=== PATIENT | male | born 1950 | race Hispanic/Latino ===

== ENCOUNTER 2017-12-11 17:25 | Emergency (ER) | payer OTHER, MEDICARE ==
[~2017-12-11 17:25] MED LIST: ACET-66 PO; APIX5TAB PO; ASPI-1005 PO; ATOR20TA65 PO; FENO145T37 PO; HYDR12.54 PO; LOSA100T29 PO; METO100T14 PO; PHEN100C23 PO; POTA10CA44 PO; SUCR1TAB2 PO; TAMS0.4C32 PO
[2017-12-11] MEDS ORDERED: LEVETIRACETAM 500 MG TABLET PO ONE (17:46)
== END 2017-12-11 18:53 | disposition home or self-care (01) ==
LOC: EDH 17:25
DX: S40.022A Contusion of left upper arm, initial encounter (principal); R56.9 Unspecified convulsions; E78.5 Hyperlipidemia, unspecified; I10 Essential (primary) hypertension; Z86.73 Personal history of transient ischemic attack (TIA), and cerebral infarction without residual deficits; X58.XXXA Exposure to other specified factors, initial encounter; Y93.89 Activity, other specified; Y92.89 Other specified places as the place of occurrence of the external cause; Y99.8 Other external cause status

== ENCOUNTER 2019-08-01 11:11 | Emergency (ER) | payer OTHER, MEDICARE ==
[~2019-08-01 11:11] MED LIST changes: -LOSA100T29 PO; +LOSA100T58 PO
[2019-08-01 11:27] LABS: BASOPHILS % (AUTO) 0.5 % (0.0-5.0); EOSINOPHILS % (AUTO) 3.8 % (0.0-8.0); HEMATOCRIT 40.6 % (42-54); LYMPHOCYTES % (AUTO) 22.6 % (21.0-51.0); MEAN CORPUSCULAR HEMOGLOBIN 33.2 pg (27.0-33.0); MEAN CORPUSCULAR HGB CONC 34.7 g/dL (32.0-36.0); MEAN CORPUSCULAR VOLUME 95.6 fL (79-99); MONOCYTES % (AUTO) 8.5 % (3.0-13.0); NEUTROPHILS % (AUTO) 64.6 % (40.0-77.0); PLATELET COUNT (AUTO) 210 K/uL (130-400); RED BLOOD CELL COUNT(AUTO) 4.24 MIL/uL (4.50-6.20); RED CELL DISTRIBUTION WIDTH 13.4 % (11.0-15.5); WHITE BLOOD COUNT (AUTO) 8.1 K/uL (4.8-10.8)
[2019-08-01 11:42] LABS: CREATININE 1.2 mg/dL (0.5-1.5); POTASSIUM 3.7 mmol/L (3.5-5.1)
[2019-08-01] MEDS ORDERED: PROCHLORPERAZINE EDISYLATE 10 MG/2 ML VIAL ONE (12:11)
[2019-08-01] MEDS ORDERED: SODIUM CHLORIDE 0.9% 1000ML 1,000 ML IV ONE (12:12)
== END 2019-08-01 13:52 | disposition home or self-care (01) ==
LOC: EDH 11:11
DX: R51 Headache (principal); R11.0 Nausea; E78.5 Hyperlipidemia, unspecified; I10 Essential (primary) hypertension; Z95.0 Presence of cardiac pacemaker; Z86.73 Personal history of transient ischemic attack (TIA), and cerebral infarction without residual deficits
CPT/HCPCS: 36415; 70450; 80048; 85025; 93005; 96374; 99285; J0780; J7030

== ENCOUNTER → 2019-08-18 | Outpatient (CLI) | payer OTHER, MEDICARE | END | disposition home or self-care (01) | LOC: SHCH 12:39 | PROVIDERS: ATTEND Internal Medicine Cardiovascular Disease | DX: I11.9 Hypertensive heart disease without heart failure (principal); I06.8 Other rheumatic aortic valve diseases | CPT/HCPCS: 93306 ==

== ENCOUNTER → 2019-09-23 | Outpatient (CLI) | payer OTHER, MEDICARE ==
[~2019-09-23] VITALS: Ht 167.6 cm; Wt 74.4 kg
[~2019-09-23] MED LIST changes: +REGADENOSON 0.4 MG/5 ML PF SYG IVP SCH
== END | disposition home or self-care (01) ==
LOC: SHCH 07:43
PROVIDERS: ATTEND Internal Medicine Cardiovascular Disease
DX: I25.10 Atherosclerotic heart disease of native coronary artery without angina pectoris (principal); I48.0 Paroxysmal atrial fibrillation
CPT/HCPCS: 78452; 93017; 96374; A9500 ×2; J2785

== ENCOUNTER 2021-09-26 09:03 | Observation (INO) | payer OTHER, MEDICARE ==
[~2021-09-26] VITALS: Ht 160 cm; Wt 71.6 kg
[~2021-09-26 09:03] MED LIST changes: +FENO145T26 PO; -FENO145T37 PO; -REGADENOSON 0.4 MG/5 ML PF SYG IVP SCH
[2021-09-26] MEDS ORDERED: 0.9%NACL 1000ML 1,000 ML IV ONE (09:30)
[2021-09-26] MEDS ORDERED: DEXAMETHASONE SOD PHOSPHATE 4 MG/ML 1ML VIAL IVP SCH (09:30)
[2021-09-26] MEDS ORDERED: MECLIZINE HCL 25 MG TABLET PO ONE (09:30)
[2021-09-26] MEDS ORDERED: DEXAMETHASONE SOD PHOSPHATE 4 MG/ML 5ML VIAL ONE (09:48)
[2021-09-26 09:51] LABS: ABG BASE EXCESS 1.8 mmol/L (-2.0-3.0); ABG HCO3 25.3 mmol/L (21.0-28.0); ABG OXYGEN SATURATION 97.6 % (95.0-99.0); ABG PCO2 36 mmHg (35-48)
[2021-09-26 10:19] LABS: BASOPHILS % (AUTO) 0.3 % (0.0-5.0); EOSINOPHILS % (AUTO) 0.2 % (0.0-8.0); HEMATOCRIT 37.3 % (42-54); LYMPHOCYTES % (AUTO) 12.8 % (21.0-51.0); MEAN CORPUSCULAR HEMOGLOBIN 32.7 pg (27.0-33.0); MEAN CORPUSCULAR HGB CONC 34.9 g/dL (32.0-36.0); MEAN CORPUSCULAR VOLUME 93.7 fL (79-99); MONOCYTES % (AUTO) 7.5 % (3.0-13.0); NEUTROPHILS % (AUTO) 78.6 % (40.0-77.0); PLATELET COUNT (AUTO) 214 K/uL (130-400); RED BLOOD CELL COUNT(AUTO) 3.98 MIL/uL (4.50-6.20); RED CELL DISTRIBUTION WIDTH 12.1 % (11.0-15.5); WHITE BLOOD COUNT (AUTO) 12.1 K/uL (4.8-10.8)
[2021-09-26 10:40] LABS: ALBUMIN 3.7 g/dL (3.5-5.0); BILIRUBIN,TOTAL 0.3 mg/dL (0.2-1.0); CREATININE 1.1 mg/dL (0.5-1.5); TOTAL PROTEIN, SERUM 7.3 g/dL (6.0-8.3)
[2021-09-26 10:41] LABS: POTASSIUM 2.7 mmol/L (3.5-5.1)
[2021-09-26 11:00] VITALS: BP 145/91
[2021-09-26 11:36] LABS: APPEARANCE,URINE Clear (CLEAR); BILIRUBIN,URINE Negative (NEGATIVE); COLOR,URINE Yellow (YELLOW); GLUCOSE, URINE (UA) Negative (NEGATIVE); KETONES,URINE Negative (NEGATIVE); LEUKOCYTE ESTERASE ,URINE Negative (NEGATIVE); NITRATE,URINE Negative (NEGATIVE); OCCULT BLOOD,URINE Negative (NEGATIVE); PROTEIN,URINE Trace mg/dL (NEGATIVE); UROBILINOGEN,URINE 0.2 mg/dL (0.2-1.0)
[2021-09-26 11:45] LABS: BACTERIA,URINE Rare /HPF (None Seen); RBC,URINE 0-1 /HPF (0-1); SQUAMOUS EPITHELIAL CELL,UR Rare /HPF (0-2); WBC,URINE 0-1 /HPF (0-1)
[2021-09-26] MEDS ORDERED: LACTULOSE 20 GM/30 ML UDCUP PO PRN (12:00)
[2021-09-26] MEDS ORDERED: DIPHENHYDRAMINE HCL 25 MG CAPSULE PO PRN (12:00)
[2021-09-26] MEDS ORDERED: POTASSIUM CHLORIDE 10% ELIXIR 20 MEQ/15 ML UDCUP PO PRN (12:00)
[2021-09-26] MEDS ORDERED: NITROGLYCERIN 0.4 MG SL TAB SL PRN (12:00)
[2021-09-26] MEDS ORDERED: MAG/ALUM/SIMETH 30 ML UDCUP PO PRN (12:00)
[2021-09-26] MEDS ORDERED: ACETAMINOPHEN 325 MG TAB PO PRN ×2 (12:00)
[2021-09-26] MEDS ORDERED: KCL 20 MEQ ERTAB PO PRN (12:00)
[2021-09-26] MEDS ORDERED: DiphenhydrAMINE HCL 50 MG/ML VIAL IV PRN (12:00)
[2021-09-26] MEDS ORDERED: CEFTRIAXONE 1G VIAL IV SCH (12:00)
[2021-09-26] MEDS ORDERED: HYDRALAZINE 20MG/ML VIAL IV PRN (12:00)
[2021-09-26] MEDS ORDERED: ONDANSETRON 4MG INJ IV PRN (12:00)
[2021-09-26] MEDS: POTASSIUM CHLORIDE 20MEQ/100ML 100 ML IV PRN ×3 (12:08→21:40)
[2021-09-26] MEDS: LIDOCAINE HCL-MPF 1% 2ML VIAL IV PRN ×3 (12:11→21:41)
[2021-09-26 12:23] LABS: INR 1.03 (0.85-1.15); PROTHROMBIN TIME 11.2 SEC (9.6-11.6)
[2021-09-26 12:24] LABS: PARTIAL THROMBOPLASTIN TIME 20.8 SEC (26.3-35.5)
[2021-09-26 12:30] LABS: CHOLESTEROL 232 mg/dL (<200); HDL CHOLESTEROL 47 mg/dL (29-71); LDL DIRECT 85 mg/dL (0-99); TRIGLYCERIDES 399 mg/dL (30-200)
[2021-09-26] MEDS: LACTATED RINGERS 1000ML 1,000 ML IV SCH (15:09)
[2021-09-26] MEDS ORDERED: AMLO-258 PO (20:20)
[2021-09-26] MEDS ORDERED: POTA-79 PO (20:20)
[2021-09-26] MEDS ORDERED: SERT-439 PO (20:20)
[2021-09-26] MEDS ORDERED: MULT-1258 PO (20:20)
[2021-09-26] MEDS ORDERED: PHEN100C9 PO (20:20)
[2021-09-26] MEDS ORDERED: APIX5TAB PO (20:20)
[2021-09-26] MEDS: FAMOTIDINE 20MG TAB PO SCH (21:40)
[2021-09-27] VITALS (7 sets, daily range): BP systolic 125–146; BP diastolic 72–91
[2021-09-27] MEDS ORDERED: FLU VACC QS2021-22(6MOS UP)/PF 60 MCG/0.5 ML ML IM ONE
[2021-09-27] MEDS ORDERED: PNEUMOCOCCAL VACCINE POLYVALENT 0.5 ML/VIAL [PPV] IM ONE
[2021-09-27] MEDS: LACTATED RINGERS 1000ML 1,000 ML IV SCH (01:01)
[2021-09-27 06:11] LABS: ALBUMIN 3.5 g/dL (3.5-5.0); BILIRUBIN,TOTAL 0.4 mg/dL (0.2-1.0)
[2021-09-27] MEDS ORDERED: FLU VACC QS2021-22(6MOS UP)/PF 60 MCG/0.5 ML ML IM SCH (06:30)
[2021-09-27] MEDS: FAMOTIDINE 20MG TAB PO SCH (09:02)
[2021-09-27] MEDS ORDERED: KCL 20 MEQ ERTAB PO SCH (11:00)
[2021-09-27] MEDS ORDERED: TAMS-1 PO (11:09)
[2021-09-27] MEDS ORDERED: ATOR10 PO (11:09)
[2021-09-27 11:16] LABS: BASOPHILS % (AUTO) 0.2 % (0.0-5.0); LYMPHOCYTES % (AUTO) 14.4 % (21.0-51.0); MEAN CORPUSCULAR HEMOGLOBIN 32.2 pg (27.0-33.0); MEAN CORPUSCULAR HGB CONC 33.9 g/dL (32.0-36.0); MONOCYTES % (AUTO) 8.2 % (3.0-13.0); NEUTROPHILS % (AUTO) 76.7 % (40.0-77.0); PLATELET COUNT (AUTO) 235 K/uL (130-400); RED BLOOD CELL COUNT(AUTO) 3.79 MIL/uL (4.50-6.20); RED CELL DISTRIBUTION WIDTH 12.5 % (11.0-15.5); WHITE BLOOD COUNT (AUTO) 13.1 K/uL (4.8-10.8)
[2021-09-27 11:17] LABS: MAGNESIUM 2.1 mg/dL (1.80-2.40); PHOSPHORUS 3.9 mg/dL (2.5-4.9)
[2021-09-27] MEDS ORDERED: ACETAMINOPHEN 500 MG TABLET PO SCH (11:30)
[2021-09-27] MEDS ORDERED: TAMSULOSIN HCL 0.4 MG CAP.ER.24H PO SCH (21:00)
[2021-09-27] MEDS ORDERED: APIXABAN 5 MG TABLET PO SCH (21:00)
[2021-09-27] MEDS ORDERED: ATORVASTATIN 20 MG TABLET PO SCH (21:00)
[2021-09-27] MEDS ORDERED: PHENYTOIN SODIUM 100 MG ERCAP PO SCH (21:00)
[2021-09-28] MEDS ORDERED: SERTRALINE HCL 50 MG TABLET PO SCH (09:00)
[2021-09-28] MEDS ORDERED: MULTIVITAMIN WITH MINERALS TABLET PO SCH (09:00)
[2021-09-28] MEDS ORDERED: CEFTRIAXONE 1G VIAL IV SCH (09:00)
[2021-09-28] MEDS ORDERED: KCL 20 MEQ ERTAB PO SCH (09:00)
== END 2021-09-27 17:03 | disposition home or self-care (01) ==
LOC: EDH 09:03 → INTOOBSV 11:37 → EDHIP 11:37 → 4DH 22:42
PROVIDERS: ADMIT Internal Medicine; ATTEND Internal Medicine
DX: I21.4 Non-ST elevation (NSTEMI) myocardial infarction (principal); Z20.822 Contact with and (suspected) exposure to COVID-19; I24.9 Acute ischemic heart disease, unspecified; I10 Essential (primary) hypertension; I25.10 Atherosclerotic heart disease of native coronary artery without angina pectoris; D72.829 Elevated white blood cell count, unspecified; E87.6 Hypokalemia; I48.0 Paroxysmal atrial fibrillation; E78.5 Hyperlipidemia, unspecified; R42 Dizziness and giddiness; R56.9 Unspecified convulsions; Z86.73 Personal history of transient ischemic attack (TIA), and cerebral infarction without residual deficits; Z23 Encounter for immunization; Z90.49 Acquired absence of other specified parts of digestive tract; Z95.0 Presence of cardiac pacemaker; Z79.899 Other long term (current) drug therapy; Z98.890 Other specified postprocedural states; Z79.82 Long term (current) use of aspirin
CPT/HCPCS: 36415 ×2; 36600; 70450; 71045; 80053 ×2; 80061; 81001; 82550 ×4; 82803; 83735; 83874 ×3; 84100; 84132; 84145; 84484 ×4; 85025 ×2; 85378; 85610; 85730; 87635; 87804 ×2; 90471; 90472; 90686; 90732; 93005 ×4; 96361 ×3; 96365; 96366 ×3; 96375; 96376; 97116; 97161; 99285; C9803; G0378 ×2; G8978; G8979; G8980; G8981; G8982; G8983; J0696 ×2; J1100; J3480 ×3; J3490 ×3; J7120; Q2035

== ENCOUNTER → 2022-04-02 | Outpatient (CLI) | payer OTHER, MEDICARE ==
[~2022-04-02] MED LIST changes: -ASPI-1005 PO; +ATOR10 PO; -FENO145T26 PO; -HYDR12.54 PO; -LOSA100T58 PO; -METO100T14 PO; +MULT-1258 PO; -PHEN100C23 PO; +PHEN100C9 PO; +POTA-79 PO; -POTA10CA44 PO; +SERT-439 PO; -SUCR1TAB2 PO; +TAMS-1 PO
== END | disposition home or self-care (01) ==
LOC: OIH 09:17
PROVIDERS: ATTEND Internal Medicine Cardiovascular Disease
DX: I34.0 Nonrheumatic mitral (valve) insufficiency (principal); I48.0 Paroxysmal atrial fibrillation
CPT/HCPCS: 93306

== ENCOUNTER 2022-04-25 02:15 | Observation (INO) | payer OTHER, MEDICARE ==
[~2022-04-25] VITALS: Ht 160 cm; Wt 72.6 kg
[2022-04-25] MEDS ORDERED: NITROGLYCERIN 0.4 MG SL TAB SL ONE (02:22)
[2022-04-25] MEDS ORDERED: NITROGLYCERIN 1GM OINT 1 INCH/1GM TD ONE ×2 (02:23→02:30)
[2022-04-25 02:30] LABS: BASOPHILS % (AUTO) 0.5 % (0.0-5.0); EOSINOPHILS % (AUTO) 0.7 % (0.0-8.0); HEMATOCRIT 40.2 % (42-54); MEAN CORPUSCULAR HEMOGLOBIN 32.1 pg (27.0-33.0); MEAN CORPUSCULAR HGB CONC 33.6 g/dL (32.0-36.0); MEAN CORPUSCULAR VOLUME 95.7 fL (79-99); MONOCYTES % (AUTO) 9.4 % (3.0-13.0); NEUTROPHILS % (AUTO) 51.2 % (40.0-77.0); PLATELET COUNT (AUTO) 212 K/uL (130-400); RED CELL DISTRIBUTION WIDTH 12.8 % (11.0-15.5); WHITE BLOOD COUNT (AUTO) 8.2 K/uL (4.8-10.8)
[2022-04-25] MEDS ORDERED: ONDANSETRON 4MG INJ IVP ONE (02:30)
[2022-04-25] MEDS ORDERED: AMLODIPINE PO (02:42)
[2022-04-25] MEDS ORDERED: PHEN200C5 PO (02:42)
[2022-04-25] MEDS ORDERED: CARV10CR PO (02:42)
[2022-04-25] MEDS ORDERED: ASPI-1032 PO (02:42)
[2022-04-25] MEDS ORDERED: CELE-84 PO (02:42)
[2022-04-25] MEDS ORDERED: LOSA100T58 PO (02:42)
[2022-04-25] MEDS ORDERED: DONE10TA43 PO (02:42)
[2022-04-25] MEDS ORDERED: HYDR25TA PO (02:42)
[2022-04-25] MEDS ORDERED: APIX5TAB PO (02:42)
[2022-04-25] MEDS ORDERED: ACET-2743 PO (02:42)
[2022-04-25 02:47] LABS: ALBUMIN 3.8 g/dL (3.5-5.0); BILIRUBIN,TOTAL 0.2 mg/dL (0.2-1.0); CREATININE 1.1 mg/dL (0.5-1.5); MAGNESIUM 2.2 mg/dL (1.80-2.40); POTASSIUM 3.1 mmol/L (3.5-5.1); TOTAL PROTEIN, SERUM 7.2 g/dL (6.0-8.3)
[2022-04-25 02:52] LABS: INR 0.99 (0.85-1.15); PARTIAL THROMBOPLASTIN TIME 26.5 SEC (26.3-35.5); PROTHROMBIN TIME 10.5 SEC (9.6-11.6)
[2022-04-25 02:53] LABS: B-TYPE NATRIURETIC PEPTIDE 118 pg/mL (0-100)
[2022-04-25] MEDS ORDERED: KCL 20 MEQ ERTAB PO ONE (04:00)
[2022-04-25] MEDS ORDERED: ONDANSETRON 4MG INJ IV PRN (04:00)
[2022-04-25] MEDS ORDERED: MORPHINE 2 MG SYG IV PRN (04:00)
[2022-04-25] MEDS ORDERED: NITROGLYCERIN 1GM OINT 1 INCH/1GM TD PRN (04:00)
[2022-04-25] MEDS ORDERED: ACETAMINOPHEN 325 MG TAB PO PRN ×2 (04:00)
[2022-04-25 04:44] LABS: HEMOGLOBIN A1C 6.1 % (4.0-6.0)
[2022-04-25] MEDS ORDERED: CEFEPIME HCL 1 GM VIAL ONE (07:56)
[2022-04-25 08:15] LABS: APPEARANCE,URINE Clear (CLEAR); BILIRUBIN,URINE Negative (NEGATIVE); COLOR,URINE Yellow (YELLOW); GLUCOSE, URINE (UA) Negative (NEGATIVE); KETONES,URINE Negative (NEGATIVE); LEUKOCYTE ESTERASE ,URINE Negative (NEGATIVE); NITRATE,URINE Negative (NEGATIVE); OCCULT BLOOD,URINE Negative (NEGATIVE); PH,URINE 5.5 (5.0-8.0); PROTEIN,URINE Trace mg/dL (NEGATIVE); UROBILINOGEN,URINE 0.2 mg/dL (0.2-1.0)
[2022-04-25 08:33] LABS: BACTERIA,URINE Rare /HPF (None Seen); RBC,URINE 0-1 /HPF (0-1); SQUAMOUS EPITHELIAL CELL,UR Rare /HPF (0-2); WBC,URINE 0-1 /HPF (0-1)
[2022-04-25] MEDS: MULTIVITAMIN WITH MINERALS TABLET PO SCH (09:43)
[2022-04-25] MEDS: DONEPEZIL HCL 5 MG TAB PO SCH (09:43)
[2022-04-25] MEDS: CARVEDILOL 3.125 MG TABLET PO SCH ×2 (09:44→19:57)
[2022-04-25] MEDS: PHENYTOIN SODIUM 100 MG ERCAP PO SCH ×2 (09:44→19:57)
[2022-04-25] MEDS: AMLODIPINE 5 MG TAB PO SCH (09:44)
[2022-04-25 10:30] VITALS: BP 154/97
[2022-04-25] MEDS: LOSARTAN 100 MG TABLET PO SCH (12:02)
[2022-04-25] MEDS: CELECOXIB 200 MG CAP PO SCH (12:02)
[2022-04-25] MEDS: APIXABAN 5 MG TABLET PO SCH ×2 (12:02→20:00)
[2022-04-25] MEDS ORDERED: LIDOCAINE HCL-MPF 1% 2ML VIAL IV PRN (13:00)
[2022-04-25] MEDS ORDERED: POTASSIUM CHLORIDE 20MEQ/100ML 100 ML IV PRN (13:00)
[2022-04-25] MEDS ORDERED: POTASSIUM CHLORIDE 10% ELIXIR 20 MEQ/15 ML UDCUP PO PRN (13:00)
[2022-04-25 15:40] VITALS: BP 126/83
[2022-04-25 20:05] VITALS: BP 146/87
[2022-04-25 23:54] VITALS: BP 169/94
[2022-04-26 02:28] LABS: BASOPHILS % (AUTO) 0.4 % (0.0-5.0); EOSINOPHILS % (AUTO) 0.6 % (0.0-8.0); HEMATOCRIT 37.3 % (42-54); LYMPHOCYTES % (AUTO) 28.3 % (21.0-51.0); MEAN CORPUSCULAR HEMOGLOBIN 32.5 pg (27.0-33.0); MEAN CORPUSCULAR VOLUME 95.4 fL (79-99); MONOCYTES % (AUTO) 8.2 % (3.0-13.0); NEUTROPHILS % (AUTO) 62.4 % (40.0-77.0); PLATELET COUNT (AUTO) 193 K/uL (130-400); RED BLOOD CELL COUNT(AUTO) 3.91 MIL/uL (4.50-6.20); RED CELL DISTRIBUTION WIDTH 12.6 % (11.0-15.5); WHITE BLOOD COUNT (AUTO) 7.9 K/uL (4.8-10.8)
[2022-04-26 02:45] LABS: ALBUMIN 3.3 g/dL (3.5-5.0); BILIRUBIN,TOTAL 0.2 mg/dL (0.2-1.0); CREATININE 0.8 mg/dL (0.5-1.5); POTASSIUM 3.4 mmol/L (3.5-5.1); TOTAL PROTEIN, SERUM 6.5 g/dL (6.0-8.3)
[2022-04-26 04:04] VITALS: BP 133/97
[2022-04-26] MEDS ORDERED: KETOROLAC 15MG/ML VIAL (15MG/ML) IV PRN (08:00)
[2022-04-26 08:02] VITALS: BP 147/96
[2022-04-26] MEDS ORDERED: REGADENOSON 0.4 MG/5 ML PF SYG IVP SCH (08:30)
[2022-04-26] MEDS: MULTIVITAMIN WITH MINERALS TABLET PO SCH (11:00)
[2022-04-26] MEDS: KCL 20 MEQ ERTAB PO PRN (11:00)
[2022-04-26] MEDS: PHENYTOIN SODIUM 100 MG ERCAP PO SCH ×2 (11:00→20:23)
[2022-04-26] MEDS: DONEPEZIL HCL 5 MG TAB PO SCH (11:01)
[2022-04-26] MEDS: APIXABAN 5 MG TABLET PO SCH ×2 (11:02→20:23)
[2022-04-26] MEDS: CELECOXIB 200 MG CAP PO SCH (11:02)
[2022-04-26] MEDS: LOSARTAN 100 MG TABLET PO SCH (11:02)
[2022-04-26] MEDS: AMLODIPINE 5 MG TAB PO SCH (11:04)
[2022-04-26 11:10] VITALS: BP 161/92
[2022-04-26] MEDS: CARVEDILOL 3.125 MG TABLET PO SCH ×2 (11:11→20:26)
[2022-04-26 16:30] VITALS: BP 154/95
[2022-04-26] MEDS: FAMOTIDINE 20MG TAB PO SCH (20:23)
[2022-04-26 20:55] VITALS: BP 146/88
[2022-04-27 00:30] VITALS: BP 142/67
[2022-04-27 04:04] LABS: MEAN CORPUSCULAR HEMOGLOBIN 32.4 pg (27.0-33.0); MEAN CORPUSCULAR HGB CONC 34.4 g/dL (32.0-36.0); MEAN CORPUSCULAR VOLUME 94.4 fL (79-99); RED BLOOD CELL COUNT(AUTO) 4.13 MIL/uL (4.50-6.20); RED CELL DISTRIBUTION WIDTH 12.3 % (11.0-15.5); WHITE BLOOD COUNT (AUTO) 7.3 K/uL (4.8-10.8)
[2022-04-27 04:10] LABS: CREATININE 0.8 mg/dL (0.5-1.5); POTASSIUM 3.2 mmol/L (3.5-5.1)
[2022-04-27 04:27] VITALS: BP 145/90
[2022-04-27 07:48] VITALS: BP 140/88
[2022-04-27 08:57] VITALS: BP 140/88
[2022-04-27] MEDS: LOSARTAN 100 MG TABLET PO SCH (08:57)
[2022-04-27] MEDS: FAMOTIDINE 20MG TAB PO SCH (08:57)
[2022-04-27] MEDS: MULTIVITAMIN WITH MINERALS TABLET PO SCH (08:57)
[2022-04-27] MEDS: DONEPEZIL HCL 5 MG TAB PO SCH (08:57)
[2022-04-27] MEDS: CELECOXIB 200 MG CAP PO SCH (08:57)
[2022-04-27] MEDS: PHENYTOIN SODIUM 100 MG ERCAP PO SCH (08:57)
[2022-04-27] MEDS: AMLODIPINE 5 MG TAB PO SCH (08:57)
[2022-04-27] MEDS: CARVEDILOL 3.125 MG TABLET PO SCH (08:57)
[2022-04-27] MEDS: APIXABAN 5 MG TABLET PO SCH (08:58)
[2022-04-27] MEDS: KCL 20 MEQ ERTAB PO PRN (10:14)
[2022-04-27] MEDS ORDERED: POTASSIUM CHLORIDE 10% ELIXIR 20 MEQ/15 ML UDCUP PO SCH (10:30)
[2022-04-30] MEDS ORDERED: LOSA100T58 PO (11:16)
[2022-04-30] MEDS ORDERED: FENO145T PO (11:16)
[2022-04-30] MEDS ORDERED: CARV12.511 PO (11:16)
[2022-04-30] MEDS ORDERED: ATOR40TA69 PO (11:16)
[2022-04-30] MEDS ORDERED: RANO500T2 PO (11:16)
[2022-04-30] MEDS ORDERED: TAMS-1 PO (11:16)
[2022-04-30] MEDS ORDERED: ASPI-1005 PO (11:16)
[2022-04-30] MEDS ORDERED: NIFE-39 PO (11:16)
[2022-04-30] MEDS ORDERED: DONE5TAB5 PO (11:16)
== END 2022-04-27 10:42 | disposition home or self-care (01) ==
LOC: EDH 02:15 → EDHIP 03:49 → 4AH 10:31
PROVIDERS: ADMIT Hospitalist; ATTEND Hospitalist
DX: R07.89 Other chest pain (principal); I48.91 Unspecified atrial fibrillation; I10 Essential (primary) hypertension; I21.4 Non-ST elevation (NSTEMI) myocardial infarction; I49.5 Sick sinus syndrome; I25.10 Atherosclerotic heart disease of native coronary artery without angina pectoris; I48.20 Chronic atrial fibrillation, unspecified; I63.9 Cerebral infarction, unspecified; I34.0 Nonrheumatic mitral (valve) insufficiency; J98.4 Other disorders of lung; J44.9 Chronic obstructive pulmonary disease, unspecified; K21.9 Gastro-esophageal reflux disease without esophagitis; E87.6 Hypokalemia; E78.5 Hyperlipidemia, unspecified; E78.00 Pure hypercholesterolemia, unspecified; Z86.73 Personal history of transient ischemic attack (TIA), and cerebral infarction without residual deficits; Z90.49 Acquired absence of other specified parts of digestive tract; Z79.899 Other long term (current) drug therapy; Z98.890 Other specified postprocedural states; Z79.82 Long term (current) use of aspirin; Z95.810 Presence of automatic (implantable) cardiac defibrillator
CPT/HCPCS: 36415 ×3; 71045; 78452; 80048; 80053 ×2; 81001; 82550; 82948; 83036; 83735 ×2; 83880; 84132; 84484 ×4; 85025 ×2; 85027; 85610; 85651; 85730; 86140; 93005 ×5; 93017; 96374; 96375; 99285; A9500 ×2; G0378 ×52; J0692; J1885; J2405; J2785

== ENCOUNTER → 2022-05-22 | Outpatient (CLI) | payer OTHER, MEDICARE ==
[~2022-05-22] VITALS: Ht 160 cm; Wt 71.1 kg
[~2022-05-22] MED LIST changes: +0.9% NACL 500ML IV.SOLN 500 ML IV SCH; +ACET-2743 PO; -ACET-66 PO; +ASPI-1005 PO; -ATOR10 PO; -ATOR20TA65 PO; +ATOR40TA69 PO; +CARV12.511 PO; +CLOP75TA14 PO; +DONE5TAB5 PO; +FENO145T PO; +HYDR25TA PO; +ISOS30TA92 PO; +LEVE-43 PO; +LOSA100T58 PO; -MULT-1258 PO; +NIFE-39 PO; +Nitroglycerin 0.4MG Sl Tab SL; -PHEN100C9 PO; +PHEN200C5 PO; +RANO500T2 PO; +RIVA20TA PO; -TAMS0.4C32 PO
[2022-05-22 15:54] LABS: BASOPHILS % (AUTO) 0.5 % (0.0-5.0); EOSINOPHILS % (AUTO) 8.8 % (0.0-8.0); HEMATOCRIT 41.5 % (42-54); LYMPHOCYTES % (AUTO) 30.1 % (21.0-51.0); MEAN CORPUSCULAR HEMOGLOBIN 31.9 pg (27.0-33.0); MEAN CORPUSCULAR HGB CONC 33.3 g/dL (32.0-36.0); MEAN CORPUSCULAR VOLUME 96.1 fL (79-99); MONOCYTES % (AUTO) 11.4 % (3.0-13.0); NEUTROPHILS % (AUTO) 48.8 % (40.0-77.0); PLATELET COUNT (AUTO) 267 K/uL (130-400); RED BLOOD CELL COUNT(AUTO) 4.32 MIL/uL (4.50-6.20); WHITE BLOOD COUNT (AUTO) 9.2 K/uL (4.8-10.8)
[2022-05-22 16:12] LABS: PROTHROMBIN TIME 10.9 SEC (9.6-11.6)
[2022-05-22 16:13] LABS: PARTIAL THROMBOPLASTIN TIME 25.6 SEC (26.3-35.5)
[2022-05-22 16:14] VITALS: BP 122/73
[2022-05-22 16:21] LABS: CREATININE 2.2 mg/dL (0.5-1.5); POTASSIUM 3.6 mmol/L (3.5-5.1)
== END | disposition home or self-care (01) ==
LOC: EDBD → DAH 10:00 → EDSTATUS 05-23 14:00
PROVIDERS: ATTEND Internal Medicine Cardiovascular Disease
DX: I49.5 Sick sinus syndrome (principal); Z79.01 Long term (current) use of anticoagulants; Z53.8 Procedure and treatment not carried out for other reasons
CPT/HCPCS: 36415; 80048; 85025; 85610; 85730; 93005

== ENCOUNTER → 2022-07-30 | Outpatient (CLI) | payer OTHER, MEDICARE ==
[~2022-07-30] MED LIST changes: -0.9% NACL 500ML IV.SOLN 500 ML IV SCH; -APIX5TAB PO; -HYDR25TA PO; -PHEN200C5 PO; -POTA-79 PO
[2022-07-30 12:32] LABS: BASOPHILS % (AUTO) 0.5 % (0.0-5.0); EOSINOPHILS % (AUTO) 3.2 % (0.0-8.0); HEMATOCRIT 35.1 % (42-54); LYMPHOCYTES % (AUTO) 24.6 % (21.0-51.0); MEAN CORPUSCULAR HEMOGLOBIN 31.6 pg (27.0-33.0); MEAN CORPUSCULAR HGB CONC 32.5 g/dL (32.0-36.0); MEAN CORPUSCULAR VOLUME 97.2 fL (79-99); MONOCYTES % (AUTO) 9.2 % (3.0-13.0); NEUTROPHILS % (AUTO) 62.2 % (40.0-77.0); PLATELET COUNT (AUTO) 283 K/uL (130-400); RED BLOOD CELL COUNT(AUTO) 3.61 MIL/uL (4.50-6.20); RED CELL DISTRIBUTION WIDTH 13.3 % (11.0-15.5); WHITE BLOOD COUNT (AUTO) 7.8 K/uL (4.8-10.8)
[2022-07-30 13:09] LABS: ALBUMIN 3.9 g/dL (3.5-5.0); CREATININE 1.2 mg/dL (0.5-1.5); POTASSIUM 3.8 mmol/L (3.5-5.1); TOTAL PROTEIN, SERUM 7.2 g/dL (6.0-8.3)
== END | disposition home or self-care (01) ==
LOC: LAB 09:15
PROVIDERS: ATTEND Internal Medicine Cardiovascular Disease
DX: I10 Essential (primary) hypertension (principal); E78.5 Hyperlipidemia, unspecified; I25.10 Atherosclerotic heart disease of native coronary artery without angina pectoris
CPT/HCPCS: 36415; 80053; 85025

== ENCOUNTER 2022-10-31 15:50 | Emergency (ER) | payer OTHER, MEDICARE ==
[~2022-10-31] VITALS: Ht 160 cm; Wt 69.9 kg
[~2022-10-31 15:50] MED LIST changes: +CLOP-31 PO; -CLOP75TA14 PO
[2022-10-31 16:31] LABS: BASOPHILS % (AUTO) 0.1 % (0.0-5.0); HEMATOCRIT 37.6 % (42-54); LYMPHOCYTES % (AUTO) 8.3 % (21.0-51.0); MEAN CORPUSCULAR HEMOGLOBIN 31.2 pg (27.0-33.0); MEAN CORPUSCULAR VOLUME 94.5 fL (79-99); MONOCYTES % (AUTO) 4.1 % (3.0-13.0); PLATELET COUNT (AUTO) 235 K/uL (130-400); RED BLOOD CELL COUNT(AUTO) 3.98 MIL/uL (4.50-6.20); RED CELL DISTRIBUTION WIDTH 11.9 % (11.0-15.5); WHITE BLOOD COUNT (AUTO) 19.2 K/uL (4.8-10.8)
[2022-10-31 16:42] LABS: CREATININE 1.3 mg/dL (0.5-1.5); POTASSIUM 3.9 mmol/L (3.5-5.1)
[2022-10-31 16:48] LABS: ALBUMIN 3.8 g/dL (3.5-5.0); TOTAL PROTEIN, SERUM 7.5 g/dL (6.0-8.3)
[2022-10-31 18:13] LABS: APPEARANCE,URINE CLEAR (CLEAR); BILIRUBIN,URINE NEGATIVE (NEGATIVE); COLOR,URINE COLORLESS (YELLOW); GLUCOSE, URINE (UA) NEGATIVE (NEGATIVE); KETONES,URINE NEGATIVE (NEGATIVE); LEUKOCYTE ESTERASE ,URINE NEGATIVE Leu/uL (NEGATIVE); NITRATE,URINE NEGATIVE (NEGATIVE); OCCULT BLOOD,URINE NEGATIVE (NEGATIVE); PROTEIN,URINE NEGATIVE (NEGATIVE); UROBILINOGEN,URINE 0.2 mg/dL (0.2-1.0)
[2022-10-31 20:00] VITALS: BP 155/84
[2022-10-31] MEDS ORDERED: CYCL10TA16 PO (21:22)
[2022-10-31] MEDS ORDERED: CYCLOBENZAPRINE HCL 10 MG TABLET PO ONE (21:30)
[2022-10-31] MEDS ORDERED: CYCLOBENZAPRINE HCL 10 MG TABLET ONE (21:32)
== END 2022-10-31 21:40 | disposition home or self-care (01) ==
LOC: EDH 15:50
DX: M62.838 Other muscle spasm (principal); D72.829 Elevated white blood cell count, unspecified; Z20.822 Contact with and (suspected) exposure to COVID-19; I10 Essential (primary) hypertension; I48.91 Unspecified atrial fibrillation; Z79.82 Long term (current) use of aspirin; Z79.899 Other long term (current) drug therapy; Z95.810 Presence of automatic (implantable) cardiac defibrillator
CPT/HCPCS: 99283; 87635; 80053; 85025; 87804 ×2; 81003; 36415; C9803

== ENCOUNTER 2023-01-25 11:24 | Emergency (ER) | payer OTHER, MEDICARE ==
[~2023-01-25] VITALS: Ht 162.6 cm; Wt 70.3 kg
[~2023-01-25 11:24] MED LIST changes: +CYCL10TA16 PO
[2023-01-25 12:01] LABS: BASOPHILS % (AUTO) 0.6 % (0.0-5.0); EOSINOPHILS % (AUTO) 2.5 % (0.0-8.0); HEMATOCRIT 36.6 % (42-54); LYMPHOCYTES % (AUTO) 21.4 % (21.0-51.0); MEAN CORPUSCULAR HEMOGLOBIN 30.8 pg (27.0-33.0); MEAN CORPUSCULAR HGB CONC 32.8 g/dL (32.0-36.0); MEAN CORPUSCULAR VOLUME 94.1 fL (79-99); MONOCYTES % (AUTO) 9.5 % (3.0-13.0); NEUTROPHILS % (AUTO) 65.6 % (40.0-77.0); PLATELET COUNT (AUTO) 272 K/uL (130-400); RED BLOOD CELL COUNT(AUTO) 3.89 MIL/uL (4.50-6.20); RED CELL DISTRIBUTION WIDTH 13.8 % (11.0-15.5); WHITE BLOOD COUNT (AUTO) 7.2 K/uL (4.8-10.8)
[2023-01-25 12:31] LABS: CREATININE 1.2 mg/dL (0.5-1.5); POTASSIUM 3.7 mmol/L (3.5-5.1)
[2023-01-25 12:35] LABS: ALBUMIN 3.2 g/dL (3.5-5.0); TOTAL PROTEIN, SERUM 6.6 g/dL (6.0-8.3)
[2023-01-25] MEDS ORDERED: HYDRALAZINE 20MG/ML VIAL IV PRN (17:00)
[2023-01-25] MEDS ORDERED: 0.9%NACL 1000ML 1,000 ML IV ONE (17:00)
[2023-01-25 17:04] LABS: HEMOGLOBIN A1C 6.4 % (4.0-6.0)
[2023-01-25] MEDS ORDERED: IOHEXOL-350 75 ML VIAL IV ONE (17:22)
[2023-01-25] MEDS ORDERED: IOHEXOL-350 50ML VIAL IV ONE (17:22)
[2023-01-25 18:11] LABS: APPEARANCE,URINE CLEAR (CLEAR); BILIRUBIN,URINE NEGATIVE (NEGATIVE); COLOR,URINE YELLOW (YELLOW); GLUCOSE, URINE (UA) NEGATIVE (NEGATIVE); KETONES,URINE NEGATIVE (NEGATIVE); LEUKOCYTE ESTERASE ,URINE NEGATIVE Leu/uL (NEGATIVE); NITRATE,URINE NEGATIVE (NEGATIVE); OCCULT BLOOD,URINE NEGATIVE (NEGATIVE); PH,URINE 6.5 (5.0-8.0); PROTEIN,URINE 20 mg/dL (NEGATIVE); UROBILINOGEN,URINE 0.2 mg/dL (0.2-1.0)
[2023-01-25 18:17] LABS: BACTERIA,URINE RARE /HPF (None Seen); MUCUS,URINE RARE LPF (None Seen); RBC,URINE 0-1 /HPF (0-1); SQUAMOUS EPITHELIAL CELL,UR RARE /HPF (0-2); WBC,URINE 0-1 /HPF (0-1)
[2023-01-25 20:14] VITALS: BP 126/69
[2023-01-25] MEDS ORDERED: LEVETIRACETAM 500 MG TABLET PO SCH (21:00)
[2023-01-26] MEDS ORDERED: ASPIRIN 81MG CHEW TAB PO SCH (09:00)
[2023-01-26] MEDS ORDERED: CLOPIDOGREL 75MG TAB PO SCH (09:00)
== END 2023-01-25 21:14 | disposition short-term general hospital (02) ==
LOC: EDH 11:24 → UNDOADMIN 16:36 → EDHIP 16:36
DX: R53.1 Weakness (principal); I48.91 Unspecified atrial fibrillation; E87.6 Hypokalemia; I10 Essential (primary) hypertension; Z79.01 Long term (current) use of anticoagulants; Z79.02 Long term (current) use of antithrombotics/antiplatelets; Z79.82 Long term (current) use of aspirin; Z79.899 Other long term (current) drug therapy; Z95.810 Presence of automatic (implantable) cardiac defibrillator; Z20.822 Contact with and (suspected) exposure to COVID-19
CPT/HCPCS: 99285; 83036; 84443; 84484 ×2; 80053; 85025; 81001; 36415; 87635; 71045; 70450; 70496; 70498; 96360; 96361; 93005; Q9967 ×2

== ENCOUNTER 2023-05-27 12:46 | Emergency (ER) | payer OTHER, MEDICARE ==
[~2023-05-27] VITALS: Ht 167.6 cm; Wt 67.6 kg
[~2023-05-27 12:46] MED LIST changes: -LOSA100T58 PO; +LOSA100T59 PO
[2023-05-27 14:19] LABS: BASOPHILS % (AUTO) 0.4 % (0.0-5.0); EOSINOPHILS % (AUTO) 0.7 % (0.0-8.0); HEMATOCRIT 39.5 % (42-54); LYMPHOCYTES % (AUTO) 14.8 % (21.0-51.0); MEAN CORPUSCULAR HEMOGLOBIN 31.4 pg (27.0-33.0); MEAN CORPUSCULAR HGB CONC 32.4 g/dL (32.0-36.0); MEAN CORPUSCULAR VOLUME 97.1 fL (79-99); MONOCYTES % (AUTO) 10.1 % (3.0-13.0); NEUTROPHILS % (AUTO) 73.7 % (40.0-77.0); PLATELET COUNT (AUTO) 194 K/uL (130-400); RED BLOOD CELL COUNT(AUTO) 4.07 MIL/uL (4.50-6.20); RED CELL DISTRIBUTION WIDTH 12.4 % (11.0-15.5); WHITE BLOOD COUNT (AUTO) 11.6 K/uL (4.8-10.8)
[2023-05-27 14:29] LABS: CREATININE 1.2 mg/dL (0.5-1.5); POTASSIUM 3.5 mmol/L (3.5-5.1)
[2023-05-27 14:34] LABS: ALBUMIN 3.7 g/dL (3.5-5.0); TOTAL PROTEIN, SERUM 7.2 g/dL (6.0-8.3)
[2023-05-27] MEDS ORDERED: KETOROLAC 15MG/ML VIAL (15MG/ML) IV ONE (15:00)
[2023-05-27] MEDS ORDERED: MORPHINE 2 MG SYG IVP ONE (15:00)
[2023-05-27 17:35] VITALS: BP 147/87
[2023-05-27] MEDS ORDERED: ACET-2079 PO (18:45)
== END 2023-05-27 19:12 | disposition home or self-care (01) ==
LOC: EDH 12:46
DX: I21.4 Non-ST elevation (NSTEMI) myocardial infarction (principal); M19.90 Unspecified osteoarthritis, unspecified site; G89.29 Other chronic pain; M25.562 Pain in left knee; M25.561 Pain in right knee; E87.6 Hypokalemia; D72.829 Elevated white blood cell count, unspecified; M62.838 Other muscle spasm; R55 Syncope and collapse; R00.2 Palpitations; I48.91 Unspecified atrial fibrillation; I10 Essential (primary) hypertension; Z79.01 Long term (current) use of anticoagulants; Z79.02 Long term (current) use of antithrombotics/antiplatelets; Z79.82 Long term (current) use of aspirin; Z79.899 Other long term (current) drug therapy; Z86.73 Personal history of transient ischemic attack (TIA), and cerebral infarction without residual deficits; Z95.810 Presence of automatic (implantable) cardiac defibrillator
CPT/HCPCS: 99285; 96374; 71045; 96375; 84484 ×2; 80053; 85025; 36415; 73562; 93005; J2270; J1885

== ENCOUNTER 2023-08-09 01:19 | Inpatient (IN) | payer OTHER, MEDICARE ==
[2023-08-09] VITALS (12 sets, daily range): BP systolic 139–192; BP diastolic 84–99; PULSE 77–88; RESP 18–28; TEMP 99.1; O2SAT 96–97
[~2023-08-09] VITALS: Ht 177.8 cm; Wt 60.2 kg
[~2023-08-09 01:19] MED LIST changes: +ACET-2079 PO
[2023-08-09] MEDS ORDERED: ACETAMINOPHEN 500 MG TABLET PO ONE (01:30)
[2023-08-09] MEDS ORDERED: 0.9%NACL 1000ML 1,461 ML IV ONE (01:30)
[2023-08-09 01:48] LABS: APPEARANCE,URINE CLEAR (CLEAR); BILIRUBIN,URINE NEGATIVE (NEGATIVE); COLOR,URINE YELLOW (YELLOW); GLUCOSE, URINE (UA) 70 mg/dL (NEGATIVE); KETONES,URINE NEGATIVE (NEGATIVE); LEUKOCYTE ESTERASE ,URINE NEGATIVE Leu/uL (NEGATIVE); NITRATE,URINE NEGATIVE (NEGATIVE); PROTEIN,URINE 50 mg/dL (NEGATIVE); UROBILINOGEN,URINE 0.2 mg/dL (0.2-1.0)
[2023-08-09] MEDS ORDERED: POTA-364 PO (01:52)
[2023-08-09] MEDS ORDERED: MIRA25TA PO (01:53)
[2023-08-09 01:54] LABS: ADD UA MICROSCOPIC YES
[2023-08-09] MEDS ORDERED: CARV3.12 PO (01:55)
[2023-08-09] MEDS ORDERED: SERT-440 PO (01:56)
[2023-08-09 01:58] LABS: SARS-CoV-2, RNA, NAAT POSITIVE SARS CoV-2 (NEGATIVE)
[2023-08-09 01:58] LABS: BASOPHILS # (AUTO) 0.03 K/uL (0.00-0.20); BASOPHILS % (AUTO) 0.3 % (0.0-5.0); EOSINOPHILS # (AUTO) 0.01 K/uL (0.00-0.70); EOSINOPHILS % (AUTO) 0.1 % (0.0-8.0); HEMATOCRIT 40.7 % (42-54); IMMATURE GRANULOCYTE ABSOLUTE 0.03 K/uL (0-1); LYMPHOCYTES # (AUTO) 1.4 K/uL (1.0-4.8); LYMPHOCYTES % (AUTO) 12.7 % (21.0-51.0); MEAN CORPUSCULAR HEMOGLOBIN 31.4 pg (27.0-33.0); MEAN CORPUSCULAR HGB CONC 33.4 g/dL (32.0-36.0); MONOCYTES # (AUTO) 1.2 K/uL (0.1-1.0); MONOCYTES % (AUTO) 10.9 % (3.0-13.0); NEUTROPHILS # (AUTO) 8.1 K/uL (1.8-7.7); NEUTROPHILS % (AUTO) 75.7 % (40.0-77.0); PLATELET COUNT (AUTO) 179 K/uL (130-400); RED BLOOD CELL COUNT(AUTO) 4.33 MIL/uL (4.50-6.20); WHITE BLOOD COUNT (AUTO) 10.7 K/uL (4.8-10.8)
[2023-08-09 02:06] LABS: INFLUENZA TYPE A Negative For Type A (NEGATIVE); INFLUENZA TYPE B Negative For Type B (NEGATIVE)
[2023-08-09 02:15] LABS: SQUAMOUS EPITHELIAL CELL,UR Rare /HPF (0-2)
[2023-08-09 02:17] LABS: ALBUMIN 3.7 g/dL (3.5-5.0); BILIRUBIN,TOTAL 0.6 mg/dL (0.2-1.0); TOTAL PROTEIN, SERUM 7.3 g/dL (6.0-8.3)
[2023-08-09 02:22] LABS: POTASSIUM 2.9 mmol/L (3.5-5.1)
[2023-08-09 03:30] LABS: INR 1.03 (0.85-1.15); PROTHROMBIN TIME 11.9 SEC (9.6-11.6)
[2023-08-09] MEDS ORDERED: POTASSIUM BICARB/CIT AC 25 MEQ TABLET.EFF PO ONE (03:30)
[2023-08-09 03:31] LABS: PARTIAL THROMBOPLASTIN TIME 27.3 SEC (26.3-35.5)
[2023-08-09] MEDS ORDERED: LACTATED RINGERS 1000ML 2,190 ML IV ONE (04:00)
[2023-08-09] MEDS ORDERED: MORPHINE 4 MG SYG IV PRN (04:00)
[2023-08-09] MEDS ORDERED: NITROGLYCERIN 0.4 MG SL TAB SL PRN (04:00)
[2023-08-09] MEDS ORDERED: GUAIFENESIN-DM 200/20 MG 10 ML PO PRN (04:00)
[2023-08-09] MEDS ORDERED: ACETAMINOPHEN 325 MG TAB PO PRN (04:00)
[2023-08-09] MEDS: HEPARIN 25,000 UNITS/250ML D5W 250 ML IV SCH ×3 (04:00→16:00)
[2023-08-09] MEDS ORDERED: 0.9%NACL 50ML IV SCH (04:00)
[2023-08-09] MEDS ORDERED: ERGOCALCIFEROL (VITAMIN D2) 50,000 UNIT CAPSULE PO ONE (04:00)
[2023-08-09] MEDS ORDERED: ASPIRIN 81MG CHEW TAB PO ONE (04:00)
[2023-08-09] MEDS ORDERED: MAGNESIUM 2GM PREMIX 50ML 50 ML IV PRN (04:00)
[2023-08-09] MEDS ORDERED: ONDANSETRON 4MG INJ IV PRN (04:00)
[2023-08-09] MEDS: ZOSYN 3.375GM +NS 50ML IVPB SCH ×3 (04:05→21:16)
[2023-08-09] MEDS: POTASSIUM CHLORIDE 20MEQ/100ML 100 ML IV PRN (04:07)
[2023-08-09] MEDS: HYDRALAZINE 20MG/ML VIAL IV PRN (06:47)
[2023-08-09] MEDS: ALBUTEROL 0.083% 2.5 MG/3 ML INH IH SCH ×4 (07:11→23:29)
[2023-08-09] MEDS: ACETAMINOPHEN 325 MG TAB PO PRN ×2 (07:58→14:10)
[2023-08-09] MEDS: Myrbetriq 25 MG PO SCH (09:00)
[2023-08-09] MEDS ORDERED: NON-FORMULARY MEDICATION 1 EACH (Sertraline HCl 100 MG) PO SCH (09:00)
[2023-08-09] MEDS: ASPIRIN 81MG CHEW TAB PO SCH (09:36)
[2023-08-09] MEDS: FAMOTIDINE 20MG TAB PO SCH (09:36)
[2023-08-09] MEDS: RIVAROXABAN 20 MG TABLET PO SCH (09:36)
[2023-08-09] MEDS: ASCORBIC ACID 500 MG TAB PO SCH (09:37)
[2023-08-09] MEDS: LEVETIRACETAM 500 MG TABLET PO SCH ×2 (09:37→21:15)
[2023-08-09] MEDS: CARVEDILOL 3.125 MG TABLET PO SCH ×2 (09:37→21:15)
[2023-08-09] MEDS: CLOPIDOGREL 75MG TAB PO SCH (09:37)
[2023-08-09] MEDS: KCL 20 MEQ ERTAB PO PRN (09:38)
[2023-08-09] MEDS: SERTRALINE HCL 50 MG TABLET PO SCH (09:38)
[2023-08-09] MEDS: ZINC SULFATE 220 CAPSULE PO SCH (09:39)
[2023-08-09 14:16] LABS: CREATININE 0.9 mg/dL (0.5-1.5)
[2023-08-09] MEDS: POTASSIUM CHLORIDE 10% ELIXIR 20 MEQ/15 ML UDCUP PO PRN ×3 (15:58→21:14)
[2023-08-09 16:23] LABS: INR 1.13 (0.85-1.15)
[2023-08-09 16:57] LABS: PARTIAL THROMBOPLASTIN TIME > 139.0 SEC (26.3-35.5)
[2023-08-09] MEDS: TAMSULOSIN HCL 0.4 MG CAP.ER.24H PO SCH (21:15)
[2023-08-09] MEDS: ATORVASTATIN 40 MG TABLET PO SCH (21:15)
[2023-08-10] VITALS (11 sets, daily range): BP systolic 94–164; BP diastolic 51–96; PULSE 71–92; RESP 18–24; O2SAT 95–98
[2023-08-10] MEDS: ZOSYN 3.375GM +NS 50ML IVPB SCH ×3 (03:55→20:49)
[2023-08-10 04:14] LABS: BASOPHILS # (AUTO) 0.03 K/uL (0.00-0.20); BASOPHILS % (AUTO) 0.3 % (0.0-5.0); EOSINOPHILS # (AUTO) 0.01 K/uL (0.00-0.70); EOSINOPHILS % (AUTO) 0.1 % (0.0-8.0); HEMATOCRIT 37.6 % (42-54); IMMATURE GRANULOCYTE ABSOLUTE 0.05 K/uL (0-1); LYMPHOCYTES % (AUTO) 19.7 % (21.0-51.0); MEAN CORPUSCULAR HEMOGLOBIN 31.6 pg (27.0-33.0); MEAN CORPUSCULAR VOLUME 95.7 fL (79-99); MONOCYTES # (AUTO) 1.1 K/uL (0.1-1.0); MONOCYTES % (AUTO) 11.1 % (3.0-13.0); NEUTROPHILS % (AUTO) 68.3 % (40.0-77.0); PLATELET COUNT (AUTO) 166 K/uL (130-400); RED BLOOD CELL COUNT(AUTO) 3.93 MIL/uL (4.50-6.20); RED CELL DISTRIBUTION WIDTH 13.2 % (11.0-15.5); WHITE BLOOD COUNT (AUTO) 10.2 K/uL (4.8-10.8)
[2023-08-10 05:13] LABS: CREATININE 0.6 mg/dL (0.5-1.5); MAGNESIUM 1.7 mg/dL (1.80-2.40); PHOSPHORUS 2.4 mg/dL (2.5-4.9); POTASSIUM 3.2 mmol/L (3.5-5.1)
[2023-08-10] MEDS: HEPARIN 25,000 UNITS/250ML D5W 250 ML IV SCH (06:26)
[2023-08-10] MEDS: POTASSIUM CHLORIDE 10% ELIXIR 20 MEQ/15 ML UDCUP PO PRN ×2 (06:31→10:10)
[2023-08-10] MEDS: ALBUTEROL 0.083% 2.5 MG/3 ML INH IH SCH ×3 (07:12→19:34)
[2023-08-10] MEDS: Myrbetriq 25 MG PO SCH (09:00)
[2023-08-10] MEDS: ASCORBIC ACID 500 MG TAB PO SCH (10:06)
[2023-08-10] MEDS: ASPIRIN 81MG CHEW TAB PO SCH (10:07)
[2023-08-10] MEDS: CARVEDILOL 3.125 MG TABLET PO SCH (10:07)
[2023-08-10] MEDS: ZINC SULFATE 220 CAPSULE PO SCH (10:08)
[2023-08-10] MEDS: LEVETIRACETAM 500 MG TABLET PO SCH ×2 (10:09→20:49)
[2023-08-10] MEDS: RIVAROXABAN 20 MG TABLET PO SCH (10:09)
[2023-08-10] MEDS: FAMOTIDINE 20MG TAB PO SCH (10:09)
[2023-08-10] MEDS: CLOPIDOGREL 75MG TAB PO SCH (10:09)
[2023-08-10] MEDS: SERTRALINE HCL 50 MG TABLET PO SCH (10:09)
[2023-08-10 12:24] LABS: CHOLESTEROL 98 mg/dL (<200); HDL CHOLESTEROL 51 mg/dL (29-71); LDL DIRECT 38 mg/dL (0-99); TRIGLYCERIDES 91 mg/dL (30-200)
[2023-08-10 12:27] LABS: HEMOGLOBIN A1C 6.3 % (4.0-6.0)
[2023-08-10] MEDS ORDERED: MAGNESIUM 2GM PREMIX 50ML 50 ML IV PRN (15:30)
[2023-08-10] MEDS: ATORVASTATIN 40 MG TABLET PO SCH (20:49)
[2023-08-10] MEDS: TAMSULOSIN HCL 0.4 MG CAP.ER.24H PO SCH (20:50)
[2023-08-11] VITALS (15 sets, daily range): BP systolic 124–168; BP diastolic 73–103; PULSE 72–111; RESP 18–19; O2SAT 95–99
[2023-08-11] MEDS: CARVEDILOL 3.125 MG TABLET PO SCH ×3 (00:20→21:24)
[2023-08-11] MEDS: ALBUTEROL 0.083% 2.5 MG/3 ML INH IH SCH ×3 (00:44→11:13)
[2023-08-11] MEDS: ZOSYN 3.375GM +NS 50ML IVPB SCH ×2 (03:10→11:58)
[2023-08-11] MEDS ORDERED: HYDRALAZINE 20MG/ML VIAL ONE (04:44)
[2023-08-11] MEDS: HYDRALAZINE 20MG/ML VIAL IV PRN (04:47)
[2023-08-11] MEDS: Myrbetriq 25 MG PO SCH (09:00)
[2023-08-11] MEDS: ASCORBIC ACID 500 MG TAB PO SCH (09:07)
[2023-08-11] MEDS: ZINC SULFATE 220 CAPSULE PO SCH (09:07)
[2023-08-11] MEDS: SERTRALINE HCL 50 MG TABLET PO SCH (09:08)
[2023-08-11] MEDS: CLOPIDOGREL 75MG TAB PO SCH (09:08)
[2023-08-11] MEDS: ASPIRIN 81MG CHEW TAB PO SCH (09:09)
[2023-08-11] MEDS: FAMOTIDINE 20MG TAB PO SCH (09:09)
[2023-08-11] MEDS: RIVAROXABAN 20 MG TABLET PO SCH (09:09)
[2023-08-11] MEDS: LEVETIRACETAM 500 MG TABLET PO SCH ×2 (09:09→21:23)
[2023-08-11] MEDS ORDERED: ALBUTEROL 0.083% 2.5 MG/3 ML INH IH PRN (14:30)
[2023-08-11 15:24] LABS: HEMATOCRIT 39.1 % (42-54); MEAN CORPUSCULAR HEMOGLOBIN 30.9 pg (27.0-33.0); MEAN CORPUSCULAR HGB CONC 32.5 g/dL (32.0-36.0); MEAN CORPUSCULAR VOLUME 95.1 fL (79-99); PLATELET COUNT (AUTO) 194 K/uL (130-400); RED BLOOD CELL COUNT(AUTO) 4.11 MIL/uL (4.50-6.20); RED CELL DISTRIBUTION WIDTH 12.9 % (11.0-15.5)
[2023-08-11 15:33] LABS: POTASSIUM 3.2 mmol/L (3.5-5.1)
[2023-08-11 15:37] LABS: ALBUMIN 3.3 g/dL (3.5-5.0); BILIRUBIN,TOTAL 0.7 mg/dL (0.2-1.0); MAGNESIUM 2.4 mg/dL (1.80-2.40)
[2023-08-11 15:58] LABS: BAND NEUTROPHILS % (MANUAL) 1 % (0-2); LYMPHOCYTES % (MANUAL) 22 % (22-44); MAN.DIFF COMMENT-IMPRESSION MANUAL DIFFERENTIAL; MONOCYTES % (MANUAL) 7 % (2-9); PLATELET MORPHOLOGY COMMENT ADEQUATE; SEGMENTED NEUTROPHILS % 70 % (40-70); TOTAL CELLS COUNTED 100
[2023-08-11] MEDS: KCL 20 MEQ ERTAB PO PRN (16:02)
[2023-08-11] MEDS: POTASSIUM CHLORIDE 10% ELIXIR 20 MEQ/15 ML UDCUP PO PRN ×2 (18:58→21:27)
[2023-08-11] MEDS: AMOX/CLAV 500/125MG TAB PO SCH (21:23)
[2023-08-11] MEDS: TAMSULOSIN HCL 0.4 MG CAP.ER.24H PO SCH (21:23)
[2023-08-11] MEDS: ATORVASTATIN 40 MG TABLET PO SCH (21:23)
[2023-08-12] VITALS (9 sets, daily range): BP systolic 126–183; BP diastolic 78–98; PULSE 66–89; RESP 16–18; O2SAT 96–100
[2023-08-12 04:59] LABS: BASOPHILS # (AUTO) 0.02 K/uL (0.00-0.20); BASOPHILS % (AUTO) 0.2 % (0.0-5.0); EOSINOPHILS # (AUTO) 0.01 K/uL (0.00-0.70); EOSINOPHILS % (AUTO) 0.1 % (0.0-8.0); HEMATOCRIT 38.6 % (42-54); IMMATURE GRANULOCYTE ABSOLUTE 0.03 K/uL (0-1); LYMPHOCYTES # (AUTO) 1.5 K/uL (1.0-4.8); LYMPHOCYTES % (AUTO) 16.7 % (21.0-51.0); MEAN CORPUSCULAR HEMOGLOBIN 30.9 pg (27.0-33.0); MEAN CORPUSCULAR HGB CONC 32.9 g/dL (32.0-36.0); MEAN CORPUSCULAR VOLUME 93.9 fL (79-99); MONOCYTES # (AUTO) 0.8 K/uL (0.1-1.0); MONOCYTES % (AUTO) 8.7 % (3.0-13.0); NEUTROPHILS # (AUTO) 6.7 K/uL (1.8-7.7); PLATELET COUNT (AUTO) 188 K/uL (130-400); RED BLOOD CELL COUNT(AUTO) 4.11 MIL/uL (4.50-6.20); RED CELL DISTRIBUTION WIDTH 12.8 % (11.0-15.5)
[2023-08-12 05:11] LABS: ALBUMIN 3.3 g/dL (3.5-5.0); BILIRUBIN,TOTAL 0.7 mg/dL (0.2-1.0); CREATININE 0.9 mg/dL (0.5-1.5); MAGNESIUM 2.2 mg/dL (1.80-2.40); PHOSPHORUS 3.7 mg/dL (2.5-4.9); POTASSIUM 3.4 mmol/L (3.5-5.1); TOTAL PROTEIN, SERUM 6.9 g/dL (6.0-8.3)
[2023-08-12] MEDS: KCL 20 MEQ ERTAB PO PRN ×2 (06:30→14:38)
[2023-08-12] MEDS: ZINC SULFATE 220 CAPSULE PO SCH (08:29)
[2023-08-12] MEDS: LEVETIRACETAM 500 MG TABLET PO SCH ×2 (08:29→20:45)
[2023-08-12] MEDS: ASPIRIN 81MG CHEW TAB PO SCH (08:29)
[2023-08-12] MEDS: CARVEDILOL 3.125 MG TABLET PO SCH ×2 (08:30→20:45)
[2023-08-12] MEDS: RIVAROXABAN 20 MG TABLET PO SCH (08:30)
[2023-08-12] MEDS: CLOPIDOGREL 75MG TAB PO SCH (08:30)
[2023-08-12] MEDS: AMOX/CLAV 500/125MG TAB PO SCH ×3 (08:31→20:45)
[2023-08-12] MEDS: SERTRALINE HCL 50 MG TABLET PO SCH (08:31)
[2023-08-12] MEDS: Myrbetriq 25 MG PO SCH (08:31)
[2023-08-12] MEDS: ASCORBIC ACID 500 MG TAB PO SCH (08:31)
[2023-08-12] MEDS: FAMOTIDINE 20MG TAB PO SCH (08:31)
[2023-08-12] MEDS ORDERED: VANCOMYCIN PROTOCOL PER PHARMACY IV PRN ×2 (14:30→15:30)
[2023-08-12] MEDS ORDERED: VANCOMYCIN 1G/250ML KIT 250 ML IV SCH (14:30)
[2023-08-12] MEDS ORDERED: DONEPEZIL HCL 5 MG TAB PO SCH (15:30)
[2023-08-12] MEDS ORDERED: VANCOMYCIN 1.5 GM/250 ML BAG 250 ML IV ONE (16:00)
[2023-08-12] MEDS: LOSARTAN 25 MG TABLET PO SCH ×2 (16:16→20:45)
[2023-08-12] MEDS: ATORVASTATIN 40 MG TABLET PO SCH (20:45)
[2023-08-12] MEDS: TAMSULOSIN HCL 0.4 MG CAP.ER.24H PO SCH (20:46)
[2023-08-13] VITALS (12 sets, daily range): BP systolic 116–168; BP diastolic 66–93; PULSE 73–97; RESP 18–20; O2SAT 95–99
[2023-08-13] MEDS: HYDRALAZINE 20MG/ML VIAL IV PRN ×2 (04:11→17:03)
[2023-08-13] MEDS: VANCOMYCIN 750MG VIAL IVPB SCH ×2 (05:22→17:03)
[2023-08-13] MEDS: MORPHINE 2 MG SYG IV PRN ×2 (05:32→11:47)
[2023-08-13] MEDS: Myrbetriq 25 MG PO SCH (09:00)
[2023-08-13] MEDS: LOSARTAN 25 MG TABLET PO SCH ×2 (09:55→20:42)
[2023-08-13] MEDS: ZINC SULFATE 220 CAPSULE PO SCH (09:55)
[2023-08-13] MEDS: ASCORBIC ACID 500 MG TAB PO SCH (09:55)
[2023-08-13] MEDS: FAMOTIDINE 20MG TAB PO SCH (09:55)
[2023-08-13] MEDS: ASPIRIN 81MG CHEW TAB PO SCH (09:55)
[2023-08-13] MEDS: LEVETIRACETAM 500 MG TABLET PO SCH ×2 (09:55→20:41)
[2023-08-13] MEDS: AMOX/CLAV 500/125MG TAB PO SCH ×3 (09:56→20:41)
[2023-08-13] MEDS: CLOPIDOGREL 75MG TAB PO SCH (09:56)
[2023-08-13] MEDS: SERTRALINE HCL 50 MG TABLET PO SCH (09:56)
[2023-08-13] MEDS: CARVEDILOL 3.125 MG TABLET PO SCH ×2 (10:01→20:41)
[2023-08-13] MEDS: RIVAROXABAN 20 MG TABLET PO SCH (10:03)
[2023-08-13] MEDS: ATORVASTATIN 40 MG TABLET PO SCH (20:41)
[2023-08-13] MEDS: TAMSULOSIN HCL 0.4 MG CAP.ER.24H PO SCH (20:42)
[2023-08-14] VITALS (13 sets, daily range): BP systolic 121–168; BP diastolic 63–93; PULSE 62–103; RESP 17–22; O2SAT 96–98
[2023-08-14 06:43] LABS: HEMATOCRIT 35.4 % (42-54); MEAN CORPUSCULAR HEMOGLOBIN 31.1 pg (27.0-33.0); MEAN CORPUSCULAR HGB CONC 32.8 g/dL (32.0-36.0); MEAN CORPUSCULAR VOLUME 94.9 fL (79-99); RED BLOOD CELL COUNT(AUTO) 3.73 MIL/uL (4.50-6.20); WHITE BLOOD COUNT (AUTO) 11.9 K/uL (4.8-10.8)
[2023-08-14] MEDS: VANCOMYCIN KIT 1 GM/250 ML IV.KIT IV SCH ×2 (06:44→19:14)
[2023-08-14 06:49] LABS: CREATININE 0.7 mg/dL (0.5-1.5); POTASSIUM 3.5 mmol/L (3.5-5.1)
[2023-08-14] MEDS ORDERED: FENTANYL CITRATE PF 50 MCG/1 ML 2ML VIAL ONE (08:48)
[2023-08-14] MEDS ORDERED: MIDAZOLAM HCL 1 MG/ML 2ML VIAL ONE (08:49)
[2023-08-14] MEDS ORDERED: LIDOCAINE HCL 2% VISCOUS 15 ML UDCUP ONE (08:52)
[2023-08-14] MEDS: LEVETIRACETAM 500 MG TABLET PO SCH ×2 (09:00→20:05)
[2023-08-14] MEDS: LOSARTAN 25 MG TABLET PO SCH ×2 (09:00→20:06)
[2023-08-14] MEDS: CARVEDILOL 3.125 MG TABLET PO SCH ×2 (09:00→20:05)
[2023-08-14] MEDS: AMOX/CLAV 500/125MG TAB PO SCH ×3 (09:00→20:05)
[2023-08-14] MEDS: Myrbetriq 25 MG PO SCH (09:00)
[2023-08-14] MEDS: HYDRALAZINE 20MG/ML VIAL IV PRN ×2 (10:16→16:06)
[2023-08-14] MEDS: ZINC SULFATE 220 CAPSULE PO SCH (16:01)
[2023-08-14] MEDS: RIVAROXABAN 20 MG TABLET PO SCH (16:01)
[2023-08-14] MEDS: BISACODYL 5 MG TABLET.DR PO SCH (16:01)
[2023-08-14] MEDS: SERTRALINE HCL 50 MG TABLET PO SCH (16:03)
[2023-08-14] MEDS: ASCORBIC ACID 500 MG TAB PO SCH (16:04)
[2023-08-14] MEDS: CLOPIDOGREL 75MG TAB PO SCH (16:04)
[2023-08-14] MEDS: FAMOTIDINE 20MG TAB PO SCH (16:05)
[2023-08-14] MEDS: ASPIRIN 81MG CHEW TAB PO SCH (16:05)
[2023-08-14] MEDS: TAMSULOSIN HCL 0.4 MG CAP.ER.24H PO SCH (20:05)
[2023-08-14] MEDS: ATORVASTATIN 40 MG TABLET PO SCH (20:05)
[2023-08-15] VITALS (8 sets, daily range): BP systolic 146–189; BP diastolic 67–109; PULSE 67–86; RESP 17–23; O2SAT 96–97
[2023-08-15] MEDS: VANCOMYCIN KIT 1 GM/250 ML IV.KIT IV SCH ×2 (05:50→18:06)
[2023-08-15] MEDS: Myrbetriq 25 MG PO SCH (09:00)
[2023-08-15] MEDS: RIVAROXABAN 20 MG TABLET PO SCH (09:05)
[2023-08-15] MEDS: SERTRALINE HCL 50 MG TABLET PO SCH (09:06)
[2023-08-15] MEDS: BISACODYL 5 MG TABLET.DR PO SCH (09:06)
[2023-08-15] MEDS: CARVEDILOL 3.125 MG TABLET PO SCH ×2 (09:06→21:32)
[2023-08-15] MEDS: ZINC SULFATE 220 CAPSULE PO SCH (09:06)
[2023-08-15] MEDS: AMOX/CLAV 500/125MG TAB PO SCH ×3 (09:06→21:26)
[2023-08-15] MEDS: FAMOTIDINE 20MG TAB PO SCH (09:06)
[2023-08-15] MEDS: ASCORBIC ACID 500 MG TAB PO SCH (09:07)
[2023-08-15] MEDS: LEVETIRACETAM 500 MG TABLET PO SCH ×2 (09:07→21:26)
[2023-08-15] MEDS: LOSARTAN 25 MG TABLET PO SCH ×2 (09:07→21:27)
[2023-08-15] MEDS: CLOPIDOGREL 75MG TAB PO SCH (09:07)
[2023-08-15] MEDS: ASPIRIN 81MG CHEW TAB PO SCH (09:07)
[2023-08-15] MEDS: HYDRALAZINE 20MG/ML VIAL IV PRN (16:27)
[2023-08-15 19:03] LABS: SARS-CoV-2, RNA, NAAT POSITIVE SARS CoV-2 (NEGATIVE)
[2023-08-15] MEDS: ATORVASTATIN 40 MG TABLET PO SCH (21:26)
[2023-08-15] MEDS: TAMSULOSIN HCL 0.4 MG CAP.ER.24H PO SCH (21:32)
[2023-08-16] VITALS (9 sets, daily range): BP systolic 136–181; BP diastolic 76–102; PULSE 68–92; RESP 16–19; O2SAT 98
[2023-08-16] MEDS: VANCOMYCIN KIT 1 GM/250 ML IV.KIT IV SCH ×2 (05:20→19:56)
[2023-08-16] MEDS: AMOX/CLAV 500/125MG TAB PO SCH ×3 (08:56→20:00)
[2023-08-16] MEDS: ASCORBIC ACID 500 MG TAB PO SCH (08:57)
[2023-08-16] MEDS: FAMOTIDINE 20MG TAB PO SCH (08:57)
[2023-08-16] MEDS: ZINC SULFATE 220 CAPSULE PO SCH (08:57)
[2023-08-16] MEDS: BISACODYL 5 MG TABLET.DR PO SCH (08:57)
[2023-08-16] MEDS: LEVETIRACETAM 500 MG TABLET PO SCH ×2 (08:57→19:57)
[2023-08-16] MEDS: CARVEDILOL 3.125 MG TABLET PO SCH ×2 (08:57→19:57)
[2023-08-16] MEDS: RIVAROXABAN 20 MG TABLET PO SCH (08:57)
[2023-08-16] MEDS: SERTRALINE HCL 50 MG TABLET PO SCH (08:57)
[2023-08-16] MEDS: LOSARTAN 25 MG TABLET PO SCH (08:58)
[2023-08-16] MEDS: ASPIRIN 81MG CHEW TAB PO SCH (08:58)
[2023-08-16] MEDS: Myrbetriq 25 MG PO SCH (08:59)
[2023-08-16] MEDS: CLOPIDOGREL 75MG TAB PO SCH (08:59)
[2023-08-16] MEDS ORDERED: FINASTERIDE 5 MG TABLET PO ONE (19:30)
[2023-08-16 19:39] LABS: BASOPHILS # (AUTO) 0.05 K/uL (0.00-0.20); BASOPHILS % (AUTO) 0.5 % (0.0-5.0); EOSINOPHILS # (AUTO) 0.03 K/uL (0.00-0.70); EOSINOPHILS % (AUTO) 0.3 % (0.0-8.0); HEMATOCRIT 33.5 % (42-54); IMMATURE GRANULOCYTE ABSOLUTE 0.05 K/uL (0-1); LYMPHOCYTES # (AUTO) 1.8 K/uL (1.0-4.8); LYMPHOCYTES % (AUTO) 16.3 % (21.0-51.0); MEAN CORPUSCULAR HGB CONC 33.1 g/dL (32.0-36.0); MEAN CORPUSCULAR VOLUME 93.6 fL (79-99); MONOCYTES # (AUTO) 1.3 K/uL (0.1-1.0); MONOCYTES % (AUTO) 11.3 % (3.0-13.0); NEUTROPHILS # (AUTO) 7.9 K/uL (1.8-7.7); NEUTROPHILS % (AUTO) 71.1 % (40.0-77.0); PLATELET COUNT (AUTO) 302 K/uL (130-400); RED BLOOD CELL COUNT(AUTO) 3.58 MIL/uL (4.50-6.20); RED CELL DISTRIBUTION WIDTH 12.8 % (11.0-15.5); WHITE BLOOD COUNT (AUTO) 11.1 K/uL (4.8-10.8)
[2023-08-16 19:52] LABS: CREATININE 0.7 mg/dL (0.5-1.5); POTASSIUM 3.3 mmol/L (3.5-5.1)
[2023-08-16 19:55] LABS: MAGNESIUM 2.1 mg/dL (1.80-2.40); PHOSPHORUS 3.5 mg/dL (2.5-4.9)
[2023-08-16] MEDS: ATORVASTATIN 40 MG TABLET PO SCH (19:57)
[2023-08-16] MEDS: LOSARTAN 50 MG TABLET PO SCH (19:57)
[2023-08-16] MEDS: TAMSULOSIN HCL 0.4 MG CAP.ER.24H PO SCH (19:58)
[2023-08-16 19:59] LABS: B-TYPE NATRIURETIC PEPTIDE 371 pg/mL (0-100)
[2023-08-16] MEDS: HYDRALAZINE 20MG/ML VIAL IV PRN (20:02)
[2023-08-17] VITALS (7 sets, daily range): BP systolic 141–169; BP diastolic 78–102; PULSE 70–116; RESP 16–20; O2SAT 97
[2023-08-17] MEDS: ACETAMINOPHEN 325 MG TAB PO PRN (03:52)
[2023-08-17] MEDS: VANCOMYCIN KIT 1 GM/250 ML IV.KIT IV SCH (09:05)
[2023-08-17] MEDS: ZINC SULFATE 220 CAPSULE PO SCH (09:52)
[2023-08-17] MEDS: CLOPIDOGREL 75MG TAB PO SCH (09:52)
[2023-08-17] MEDS: BISACODYL 5 MG TABLET.DR PO SCH (09:53)
[2023-08-17] MEDS: CARVEDILOL 3.125 MG TABLET PO SCH ×2 (09:53→20:55)
[2023-08-17] MEDS: ASCORBIC ACID 500 MG TAB PO SCH (09:53)
[2023-08-17] MEDS: LEVETIRACETAM 500 MG TABLET PO SCH ×2 (09:53→20:57)
[2023-08-17] MEDS: LOSARTAN 50 MG TABLET PO SCH ×2 (09:53→20:55)
[2023-08-17] MEDS: FAMOTIDINE 20MG TAB PO SCH (09:53)
[2023-08-17] MEDS: FINASTERIDE 5 MG TABLET PO SCH (09:53)
[2023-08-17] MEDS: SERTRALINE HCL 50 MG TABLET PO SCH (09:54)
[2023-08-17] MEDS: RIVAROXABAN 20 MG TABLET PO SCH (09:55)
[2023-08-17] MEDS: ASPIRIN 81MG CHEW TAB PO SCH (09:55)
[2023-08-17] MEDS: ATORVASTATIN 40 MG TABLET PO SCH (20:53)
[2023-08-17] MEDS: TAMSULOSIN HCL 0.4 MG CAP.ER.24H PO SCH (20:53)
[2023-08-17] MEDS: VANCOMYCIN 1.25 GM/250 ML BAG 250 ML IV SCH (20:55)
[2023-08-18 03:49] VITALS: BP 134/82; PULSE 85; RESP 20
[2023-08-18] MEDS: VANCOMYCIN 1.25 GM/250 ML BAG 250 ML IV SCH ×2 (05:21→18:37)
[2023-08-18 08:00] VITALS: BP 161/90; PULSE 75; RESP 16
[2023-08-18] MEDS: LOSARTAN 50 MG TABLET PO SCH ×2 (10:29→22:02)
[2023-08-18] MEDS: ZINC SULFATE 220 CAPSULE PO SCH (10:29)
[2023-08-18] MEDS: FINASTERIDE 5 MG TABLET PO SCH (10:29)
[2023-08-18] MEDS: ASCORBIC ACID 500 MG TAB PO SCH (10:29)
[2023-08-18] MEDS: LEVETIRACETAM 500 MG TABLET PO SCH ×2 (10:29→22:02)
[2023-08-18] MEDS: RIVAROXABAN 20 MG TABLET PO SCH (10:29)
[2023-08-18] MEDS: SERTRALINE HCL 50 MG TABLET PO SCH (10:30)
[2023-08-18] MEDS: CLOPIDOGREL 75MG TAB PO SCH (10:30)
[2023-08-18] MEDS: BISACODYL 5 MG TABLET.DR PO SCH (10:30)
[2023-08-18] MEDS: ASPIRIN 81MG CHEW TAB PO SCH (10:32)
[2023-08-18] MEDS: FAMOTIDINE 20MG TAB PO SCH (10:33)
[2023-08-18] MEDS: CARVEDILOL 3.125 MG TABLET PO SCH ×2 (10:34→22:03)
[2023-08-18 12:00] VITALS: BP 156/83; PULSE 82; RESP 16
[2023-08-18 13:32] LABS: HEMATOCRIT 33.6 % (42-54); MEAN CORPUSCULAR HEMOGLOBIN 31.3 pg (27.0-33.0); MEAN CORPUSCULAR HGB CONC 33.3 g/dL (32.0-36.0); MEAN CORPUSCULAR VOLUME 93.9 fL (79-99); RED BLOOD CELL COUNT(AUTO) 3.58 MIL/uL (4.50-6.20); RED CELL DISTRIBUTION WIDTH 12.5 % (11.0-15.5); WHITE BLOOD COUNT (AUTO) 10.4 K/uL (4.8-10.8)
[2023-08-18 13:46] LABS: CREATININE 0.8 mg/dL (0.5-1.5); POTASSIUM 3.5 mmol/L (3.5-5.1)
[2023-08-18] MEDS: POTASSIUM CHLORIDE 10% ELIXIR 20 MEQ/15 ML UDCUP PO PRN (14:59)
[2023-08-18 16:00] VITALS: BP 138/73; PULSE 80; RESP 16
[2023-08-18 20:00] VITALS: BP 148/90; PULSE 70; RESP 20
[2023-08-18] MEDS: TAMSULOSIN HCL 0.4 MG CAP.ER.24H PO SCH (22:02)
[2023-08-18] MEDS: ATORVASTATIN 40 MG TABLET PO SCH (22:02)
[2023-08-18 23:50] VITALS: BP 158/92; PULSE 80; RESP 18
[2023-08-19 04:00] VITALS: BP 160/89; PULSE 72; RESP 20
[2023-08-19 04:36] LABS: HEMATOCRIT 32.3 % (42-54); MEAN CORPUSCULAR HEMOGLOBIN 30.7 pg (27.0-33.0); MEAN CORPUSCULAR HGB CONC 32.5 g/dL (32.0-36.0); MEAN CORPUSCULAR VOLUME 94.4 fL (79-99); RED BLOOD CELL COUNT(AUTO) 3.42 MIL/uL (4.50-6.20); RED CELL DISTRIBUTION WIDTH 12.6 % (11.0-15.5); WHITE BLOOD COUNT (AUTO) 10.2 K/uL (4.8-10.8)
[2023-08-19 04:54] LABS: ALBUMIN 2.8 g/dL (3.5-5.0); BILIRUBIN,TOTAL 0.5 mg/dL (0.2-1.0); CREATININE 0.8 mg/dL (0.5-1.5); POTASSIUM 3.1 mmol/L (3.5-5.1); TOTAL PROTEIN, SERUM 6.5 g/dL (6.0-8.3); VANCOMYCIN TROUGH 17.3 UG/ML (10.0-20.0)
[2023-08-19] MEDS: VANCOMYCIN 1.25 GM/250 ML BAG 250 ML IV SCH (06:35)
[2023-08-19 07:23] VITALS: BP 176/99; PULSE 87; RESP 17
[2023-08-19] MEDS: ASPIRIN 81MG CHEW TAB PO SCH (08:43)
[2023-08-19] MEDS: FINASTERIDE 5 MG TABLET PO SCH (08:43)
[2023-08-19] MEDS: RIVAROXABAN 20 MG TABLET PO SCH (08:44)
[2023-08-19] MEDS: BISACODYL 5 MG TABLET.DR PO SCH (08:44)
[2023-08-19] MEDS: CARVEDILOL 3.125 MG TABLET PO SCH ×2 (08:44→21:15)
[2023-08-19] MEDS: LOSARTAN 50 MG TABLET PO SCH ×2 (08:44→21:15)
[2023-08-19] MEDS: ASCORBIC ACID 500 MG TAB PO SCH (08:45)
[2023-08-19] MEDS: SERTRALINE HCL 50 MG TABLET PO SCH (08:45)
[2023-08-19] MEDS: CLOPIDOGREL 75MG TAB PO SCH (08:45)
[2023-08-19] MEDS: FAMOTIDINE 20MG TAB PO SCH (08:45)
[2023-08-19] MEDS: ZINC SULFATE 220 CAPSULE PO SCH (08:45)
[2023-08-19] MEDS: LEVETIRACETAM 500 MG TABLET PO SCH ×2 (08:45→21:15)
[2023-08-19 12:00] VITALS: BP 139/85; PULSE 67; RESP 18
[2023-08-19 16:00] VITALS: BP 149/96; PULSE 68; RESP 18
[2023-08-19] MEDS: VANCOMYCIN 1G/250ML KIT 250 ML IV SCH (16:34)
[2023-08-19 19:13] VITALS: BP 179/89; PULSE 82; RESP 18
[2023-08-19] MEDS: ATORVASTATIN 40 MG TABLET PO SCH (21:15)
[2023-08-19] MEDS: TAMSULOSIN HCL 0.4 MG CAP.ER.24H PO SCH (21:15)
[2023-08-19 23:56] VITALS: BP 157/78; PULSE 88; RESP 19
[2023-08-20 03:37] VITALS: BP 170/69; PULSE 92; RESP 20
[2023-08-20] MEDS: VANCOMYCIN 1G/250ML KIT 250 ML IV SCH ×2 (05:07→16:44)
[2023-08-20 07:28] VITALS: BP 165/99; PULSE 77; RESP 16
[2023-08-20] MEDS: RIVAROXABAN 20 MG TABLET PO SCH (08:30)
[2023-08-20] MEDS: CLOPIDOGREL 75MG TAB PO SCH (08:30)
[2023-08-20] MEDS: CARVEDILOL 3.125 MG TABLET PO SCH ×2 (08:31→20:04)
[2023-08-20] MEDS: FINASTERIDE 5 MG TABLET PO SCH (08:32)
[2023-08-20] MEDS: SERTRALINE HCL 50 MG TABLET PO SCH (08:32)
[2023-08-20] MEDS: LEVETIRACETAM 500 MG TABLET PO SCH ×2 (08:32→20:06)
[2023-08-20] MEDS: LOSARTAN 50 MG TABLET PO SCH ×2 (08:32→20:03)
[2023-08-20] MEDS: ZINC SULFATE 220 CAPSULE PO SCH (08:32)
[2023-08-20] MEDS: FAMOTIDINE 20MG TAB PO SCH (08:32)
[2023-08-20] MEDS: ASCORBIC ACID 500 MG TAB PO SCH (08:33)
[2023-08-20] MEDS: ASPIRIN 81MG CHEW TAB PO SCH (08:33)
[2023-08-20] MEDS: BISACODYL 5 MG TABLET.DR PO SCH (08:33)
[2023-08-20 09:18] LABS: HEMATOCRIT 33.8 % (42-54); MEAN CORPUSCULAR HEMOGLOBIN 30.8 pg (27.0-33.0); MEAN CORPUSCULAR HGB CONC 32.8 g/dL (32.0-36.0); MEAN CORPUSCULAR VOLUME 93.9 fL (79-99); RED BLOOD CELL COUNT(AUTO) 3.6 MIL/uL (4.50-6.20); RED CELL DISTRIBUTION WIDTH 12.7 % (11.0-15.5); WHITE BLOOD COUNT (AUTO) 11.1 K/uL (4.8-10.8)
[2023-08-20 09:36] LABS: CREATININE 0.8 mg/dL (0.5-1.5); POTASSIUM 3.5 mmol/L (3.5-5.1)
[2023-08-20 11:36] VITALS: BP 178/88; PULSE 66; RESP 16
[2023-08-20 15:44] VITALS: BP 155/86; PULSE 70; RESP 16
[2023-08-20 20:00] VITALS: BP 148/93; PULSE 75; RESP 18
[2023-08-20] MEDS: ATORVASTATIN 40 MG TABLET PO SCH (20:03)
[2023-08-20] MEDS: TAMSULOSIN HCL 0.4 MG CAP.ER.24H PO SCH (20:04)
[2023-08-21] VITALS: BP 149/84; PULSE 64; RESP 17
[2023-08-21 03:55] VITALS: BP 150/86; PULSE 87; RESP 19
[2023-08-21 05:15] LABS: HEMATOCRIT 32.6 % (42-54); MEAN CORPUSCULAR HGB CONC 32.5 g/dL (32.0-36.0); MEAN CORPUSCULAR VOLUME 95.3 fL (79-99); RED BLOOD CELL COUNT(AUTO) 3.42 MIL/uL (4.50-6.20); RED CELL DISTRIBUTION WIDTH 12.8 % (11.0-15.5); WHITE BLOOD COUNT (AUTO) 11.6 K/uL (4.8-10.8)
[2023-08-21] MEDS: VANCOMYCIN 1G/250ML KIT 250 ML IV SCH ×2 (05:20→19:18)
[2023-08-21 05:41] LABS: POTASSIUM 2.9 mmol/L (3.5-5.1)
[2023-08-21] MEDS: POTASSIUM CHLORIDE 10% ELIXIR 20 MEQ/15 ML UDCUP PO PRN ×2 (05:45→16:13)
[2023-08-21] MEDS: POTASSIUM CHLORIDE 20MEQ/100ML 100 ML IV PRN (05:46)
[2023-08-21 08:00] VITALS: BP 180/95; PULSE 68; RESP 20
[2023-08-21] MEDS: ZINC SULFATE 220 CAPSULE PO SCH (09:54)
[2023-08-21] MEDS: LEVETIRACETAM 500 MG TABLET PO SCH ×2 (09:54→20:07)
[2023-08-21] MEDS: FAMOTIDINE 20MG TAB PO SCH (09:54)
[2023-08-21] MEDS: ASPIRIN 81MG CHEW TAB PO SCH (09:54)
[2023-08-21] MEDS: SERTRALINE HCL 50 MG TABLET PO SCH (09:54)
[2023-08-21] MEDS: RIVAROXABAN 20 MG TABLET PO SCH (09:54)
[2023-08-21] MEDS: FINASTERIDE 5 MG TABLET PO SCH (09:58)
[2023-08-21] MEDS: LOSARTAN 50 MG TABLET PO SCH ×2 (09:58→20:07)
[2023-08-21] MEDS: CARVEDILOL 3.125 MG TABLET PO SCH ×2 (09:58→20:07)
[2023-08-21] MEDS: BISACODYL 5 MG TABLET.DR PO SCH (09:58)
[2023-08-21] MEDS: ASCORBIC ACID 500 MG TAB PO SCH (09:58)
[2023-08-21] MEDS: CLOPIDOGREL 75MG TAB PO SCH (10:00)
[2023-08-21 12:00] VITALS: BP 158/87; PULSE 76; RESP 17
[2023-08-21 20:00] VITALS: BP 160/92; PULSE 71; RESP 20; O2SAT 100
[2023-08-21] MEDS: ATORVASTATIN 40 MG TABLET PO SCH (20:07)
[2023-08-21] MEDS: TAMSULOSIN HCL 0.4 MG CAP.ER.24H PO SCH (20:07)
[2023-08-22] VITALS (9 sets, daily range): BP systolic 135–182; BP diastolic 75–98; PULSE 73–90; RESP 18–20; O2SAT 98
[2023-08-22 04:19] LABS: BASOPHILS # (AUTO) 0.06 K/uL (0.00-0.20); BASOPHILS % (AUTO) 0.5 % (0.0-5.0); EOSINOPHILS # (AUTO) 0.02 K/uL (0.00-0.70); EOSINOPHILS % (AUTO) 0.2 % (0.0-8.0); HEMATOCRIT 30.5 % (42-54); IMMATURE GRANULOCYTE ABSOLUTE 0.03 K/uL (0-1); LYMPHOCYTES % (AUTO) 17.4 % (21.0-51.0); MEAN CORPUSCULAR HEMOGLOBIN 31.4 pg (27.0-33.0); MEAN CORPUSCULAR HGB CONC 33.4 g/dL (32.0-36.0); MEAN CORPUSCULAR VOLUME 93.8 fL (79-99); MONOCYTES # (AUTO) 1.1 K/uL (0.1-1.0); MONOCYTES % (AUTO) 9.7 % (3.0-13.0); NEUTROPHILS # (AUTO) 8.2 K/uL (1.8-7.7); NEUTROPHILS % (AUTO) 71.9 % (40.0-77.0); PLATELET COUNT (AUTO) 326 K/uL (130-400); RED BLOOD CELL COUNT(AUTO) 3.25 MIL/uL (4.50-6.20); RED CELL DISTRIBUTION WIDTH 12.7 % (11.0-15.5); WHITE BLOOD COUNT (AUTO) 11.3 K/uL (4.8-10.8)
[2023-08-22 04:40] LABS: ALBUMIN 2.7 g/dL (3.5-5.0); BILIRUBIN,TOTAL 0.6 mg/dL (0.2-1.0); CREATININE 0.9 mg/dL (0.5-1.5); POTASSIUM 3.4 mmol/L (3.5-5.1); TOTAL PROTEIN, SERUM 6.2 g/dL (6.0-8.3)
[2023-08-22] MEDS: VANCOMYCIN 1G/250ML KIT 250 ML IV SCH ×2 (05:22→18:08)
[2023-08-22] MEDS: POTASSIUM CHLORIDE 10% ELIXIR 20 MEQ/15 ML UDCUP PO PRN ×2 (05:29→09:46)
[2023-08-22] MEDS: RIVAROXABAN 20 MG TABLET PO SCH (09:46)
[2023-08-22] MEDS: LEVETIRACETAM 500 MG TABLET PO SCH ×2 (09:46→20:01)
[2023-08-22] MEDS: ASCORBIC ACID 500 MG TAB PO SCH (09:46)
[2023-08-22] MEDS: LOSARTAN 50 MG TABLET PO SCH ×2 (09:46→20:01)
[2023-08-22] MEDS: ASPIRIN 81MG CHEW TAB PO SCH (09:46)
[2023-08-22] MEDS: FINASTERIDE 5 MG TABLET PO SCH (09:46)
[2023-08-22] MEDS: CLOPIDOGREL 75MG TAB PO SCH (09:46)
[2023-08-22] MEDS: SERTRALINE HCL 50 MG TABLET PO SCH (09:46)
[2023-08-22] MEDS: BISACODYL 5 MG TABLET.DR PO SCH (09:47)
[2023-08-22] MEDS: CARVEDILOL 3.125 MG TABLET PO SCH ×2 (09:47→20:01)
[2023-08-22] MEDS: ZINC SULFATE 220 CAPSULE PO SCH (09:47)
[2023-08-22] MEDS: FAMOTIDINE 20MG TAB PO SCH (09:47)
[2023-08-22] MEDS: HYDRALAZINE 20MG/ML VIAL IV PRN (10:55)
[2023-08-22] MEDS: ATORVASTATIN 40 MG TABLET PO SCH (20:01)
[2023-08-22] MEDS: TAMSULOSIN HCL 0.4 MG CAP.ER.24H PO SCH (20:01)
[2023-08-23] VITALS (8 sets, daily range): BP systolic 94–189; BP diastolic 70–100; PULSE 66–89; RESP 16–20; O2SAT 96–98
[2023-08-23] MEDS: VANCOMYCIN 1G/250ML KIT 250 ML IV SCH ×2 (05:47→18:00)
[2023-08-23] MEDS: LEVETIRACETAM 500 MG TABLET PO SCH ×2 (08:57→19:41)
[2023-08-23] MEDS: SERTRALINE HCL 50 MG TABLET PO SCH (08:57)
[2023-08-23] MEDS: BISACODYL 5 MG TABLET.DR PO SCH (08:57)
[2023-08-23] MEDS: ASCORBIC ACID 500 MG TAB PO SCH (08:57)
[2023-08-23] MEDS: LOSARTAN 50 MG TABLET PO SCH ×2 (08:57→19:41)
[2023-08-23] MEDS: CLOPIDOGREL 75MG TAB PO SCH (08:58)
[2023-08-23] MEDS: ZINC SULFATE 220 CAPSULE PO SCH (08:58)
[2023-08-23] MEDS: CARVEDILOL 3.125 MG TABLET PO SCH ×2 (08:58→19:41)
[2023-08-23] MEDS: FINASTERIDE 5 MG TABLET PO SCH (08:59)
[2023-08-23] MEDS: RIVAROXABAN 20 MG TABLET PO SCH (08:59)
[2023-08-23] MEDS: ASPIRIN 81MG CHEW TAB PO SCH (08:59)
[2023-08-23] MEDS: FAMOTIDINE 20MG TAB PO SCH (08:59)
[2023-08-23] MEDS: ATORVASTATIN 40 MG TABLET PO SCH (19:41)
[2023-08-23] MEDS: TAMSULOSIN HCL 0.4 MG CAP.ER.24H PO SCH (19:41)
[2023-08-23] MEDS: HYDRALAZINE 20MG/ML VIAL IV PRN (20:04)
[2023-08-24] VITALS (8 sets, daily range): BP systolic 123–170; BP diastolic 64–104; PULSE 72–94; RESP 18–20; O2SAT 97–98
[2023-08-24 04:26] LABS: BASOPHILS # (AUTO) 0.07 K/uL (0.00-0.20); BASOPHILS % (AUTO) 0.6 % (0.0-5.0); EOSINOPHILS # (AUTO) 0.02 K/uL (0.00-0.70); EOSINOPHILS % (AUTO) 0.2 % (0.0-8.0); HEMATOCRIT 32.8 % (42-54); IMMATURE GRANULOCYTE ABSOLUTE 0.04 K/uL (0-1); LYMPHOCYTES # (AUTO) 1.5 K/uL (1.0-4.8); LYMPHOCYTES % (AUTO) 12.4 % (21.0-51.0); MEAN CORPUSCULAR HEMOGLOBIN 30.8 pg (27.0-33.0); MEAN CORPUSCULAR HGB CONC 32.6 g/dL (32.0-36.0); MEAN CORPUSCULAR VOLUME 94.5 fL (79-99); MONOCYTES # (AUTO) 1.1 K/uL (0.1-1.0); MONOCYTES % (AUTO) 8.7 % (3.0-13.0); NEUTROPHILS # (AUTO) 9.5 K/uL (1.8-7.7); NEUTROPHILS % (AUTO) 77.8 % (40.0-77.0); PLATELET COUNT (AUTO) 304 K/uL (130-400); RED BLOOD CELL COUNT(AUTO) 3.47 MIL/uL (4.50-6.20); WHITE BLOOD COUNT (AUTO) 12.2 K/uL (4.8-10.8)
[2023-08-24 04:38] LABS: ALBUMIN 2.9 g/dL (3.5-5.0); BILIRUBIN,TOTAL 0.6 mg/dL (0.2-1.0); CREATININE 1.3 mg/dL (0.5-1.5); POTASSIUM 3.2 mmol/L (3.5-5.1); TOTAL PROTEIN, SERUM 6.7 g/dL (6.0-8.3); VANCOMYCIN LEVEL 19.6 mcg/mL (20.0-30.0)
[2023-08-24] MEDS: VANCOMYCIN 1G/250ML KIT 250 ML IV SCH (05:12)
[2023-08-24] MEDS: POTASSIUM CHLORIDE 10% ELIXIR 20 MEQ/15 ML UDCUP PO PRN ×2 (05:57→15:54)
[2023-08-24] MEDS: VANCOMYCIN 750MG VIAL IVPB SCH ×2 (09:51→22:16)
[2023-08-24] MEDS: SERTRALINE HCL 50 MG TABLET PO SCH (09:52)
[2023-08-24] MEDS: BISACODYL 5 MG TABLET.DR PO SCH (09:52)
[2023-08-24] MEDS: FAMOTIDINE 20MG TAB PO SCH (09:52)
[2023-08-24] MEDS: CARVEDILOL 3.125 MG TABLET PO SCH ×2 (09:52→22:17)
[2023-08-24] MEDS: RIVAROXABAN 20 MG TABLET PO SCH (09:52)
[2023-08-24] MEDS: ASPIRIN 81MG CHEW TAB PO SCH (09:53)
[2023-08-24] MEDS: FINASTERIDE 5 MG TABLET PO SCH (09:53)
[2023-08-24] MEDS: ASCORBIC ACID 500 MG TAB PO SCH (09:53)
[2023-08-24] MEDS: CLOPIDOGREL 75MG TAB PO SCH (09:53)
[2023-08-24] MEDS: LOSARTAN 50 MG TABLET PO SCH ×2 (09:53→22:18)
[2023-08-24] MEDS: LEVETIRACETAM 500 MG TABLET PO SCH ×2 (09:53→22:18)
[2023-08-24] MEDS: ZINC SULFATE 220 CAPSULE PO SCH (09:55)
[2023-08-24] MEDS: HYDRALAZINE 20MG/ML VIAL IV PRN (11:09)
[2023-08-24 15:05] LABS: INR 1.21 (0.85-1.15); PROTHROMBIN TIME 13.9 SEC (9.6-11.6)
[2023-08-24 15:06] LABS: PARTIAL THROMBOPLASTIN TIME 34.5 SEC (26.3-35.5)
[2023-08-24] MEDS ORDERED: KCL 20 MEQ ERTAB PO ONE (15:30)
[2023-08-24] MEDS: TAMSULOSIN HCL 0.4 MG CAP.ER.24H PO SCH (22:17)
[2023-08-24] MEDS: ATORVASTATIN 40 MG TABLET PO SCH (22:17)
[2023-08-25] VITALS: BP 135/69; PULSE 87; RESP 20
[2023-08-25 04:00] VITALS: BP 158/94; PULSE 84; RESP 20
[2023-08-25 05:37] LABS: HEMATOCRIT 29.5 % (42-54); MEAN CORPUSCULAR HEMOGLOBIN 30.9 pg (27.0-33.0); MEAN CORPUSCULAR HGB CONC 32.9 g/dL (32.0-36.0); MEAN CORPUSCULAR VOLUME 93.9 fL (79-99); RED BLOOD CELL COUNT(AUTO) 3.14 MIL/uL (4.50-6.20); WHITE BLOOD COUNT (AUTO) 10.4 K/uL (4.8-10.8)
[2023-08-25 05:56] LABS: ALBUMIN 2.7 g/dL (3.5-5.0); BILIRUBIN,TOTAL 0.6 mg/dL (0.2-1.0); CREATININE 1.3 mg/dL (0.5-1.5); POTASSIUM 3.3 mmol/L (3.5-5.1); TOTAL PROTEIN, SERUM 6.1 g/dL (6.0-8.3)
[2023-08-25 08:00] VITALS: O2SAT 96
[2023-08-25 08:01] VITALS: BP 155/90; PULSE 92; RESP 18
[2023-08-25] MEDS: SERTRALINE HCL 50 MG TABLET PO SCH (09:30)
[2023-08-25] MEDS: ASPIRIN 81MG CHEW TAB PO SCH (09:30)
[2023-08-25] MEDS: FINASTERIDE 5 MG TABLET PO SCH (09:30)
[2023-08-25] MEDS: FAMOTIDINE 20MG TAB PO SCH (09:30)
[2023-08-25] MEDS: LOSARTAN 50 MG TABLET PO SCH (09:30)
[2023-08-25] MEDS: RIVAROXABAN 20 MG TABLET PO SCH (09:30)
[2023-08-25] MEDS: VANCOMYCIN 750MG VIAL IVPB SCH (09:30)
[2023-08-25] MEDS: CLOPIDOGREL 75MG TAB PO SCH (09:34)
[2023-08-25] MEDS: CARVEDILOL 3.125 MG TABLET PO SCH (09:34)
[2023-08-25] MEDS: BISACODYL 5 MG TABLET.DR PO SCH (09:35)
[2023-08-25] MEDS: LEVETIRACETAM 500 MG TABLET PO SCH (09:35)
[2023-08-25] MEDS: ZINC SULFATE 220 CAPSULE PO SCH (09:35)
[2023-08-25] MEDS: ASCORBIC ACID 500 MG TAB PO SCH (09:35)
[2023-08-25 11:00] VITALS: BP 175/96; PULSE 83; RESP 20
[2023-08-25] MEDS ORDERED: KCL 20 MEQ ERTAB PO ONE (13:00)
[2023-08-25 15:00] VITALS: BP 155/85; PULSE 76; RESP 20
[2023-08-25] MEDS ORDERED: FINA-37 PO (15:45)
[2023-08-25] MEDS ORDERED: LOSA-418 PO (15:45)
[2023-08-25] MEDS ORDERED: CARV3.1262 PO (15:45)
== END 2023-08-25 16:50 | DRG 871 ==
LOC: EDH 01:19 → EDHIP 03:33 → 2DH 13:22 → 4CH 08-11 17:30 → 4BH 08-21 19:21
PROVIDERS: ADMIT Internal Medicine; ATTEND Internal Medicine
PROC: 02HV33Z Insertion of Infusion Device into Superior Vena Cava, Percutaneous Approach (ICD-10-PCS; principal; 2023-08-25)
DX: A41.9 Sepsis, unspecified organism (principal); I21.A1 Myocardial infarction type 2; U07.1 COVID-19; J12.82 Pneumonia due to coronavirus disease 2019; I48.20 Chronic atrial fibrillation, unspecified; I50.42 Chronic combined systolic (congestive) and diastolic (congestive) heart failure; D68.69 Other thrombophilia; E87.1 Hypo-osmolality and hyponatremia; F03.911 Unspecified dementia, unspecified severity, with agitation; F05 Delirium due to known physiological condition; I69.354 Hemiplegia and hemiparesis following cerebral infarction affecting left non-dominant side; I25.10 Atherosclerotic heart disease of native coronary artery without angina pectoris; I11.0 Hypertensive heart disease with heart failure; I16.0 Hypertensive urgency; E87.6 Hypokalemia; G40.909 Epilepsy, unspecified, not intractable, without status epilepticus; B96.89 Other specified bacterial agents as the cause of diseases classified elsewhere; B95.7 Other staphylococcus as the cause of diseases classified elsewhere; D64.9 Anemia, unspecified; E78.1 Pure hyperglyceridemia; I25.5 Ischemic cardiomyopathy; N28.9 Disorder of kidney and ureter, unspecified; N40.0 Benign prostatic hyperplasia without lower urinary tract symptoms; Z53.9 Procedure and treatment not carried out, unspecified reason; I25.2 Old myocardial infarction; Z74.01 Bed confinement status; Z95.5 Presence of coronary angioplasty implant and graft; Z79.01 Long term (current) use of anticoagulants; Z79.82 Long term (current) use of aspirin; Z82.0 Family history of epilepsy and other diseases of the nervous system; Z82.3 Family history of stroke; Z82.49 Family history of ischemic heart disease and other diseases of the circulatory system; Z82.5 Family history of asthma and other chronic lower respiratory diseases; Z90.49 Acquired absence of other specified parts of digestive tract; Z95.0 Presence of cardiac pacemaker
CPT/HCPCS: 36415; 71045; 80048; 80053; 80061; 80177; 80202; 81001; 82306; 82948; 83036; 83605; 83735; 83880; 84100; 84132; 84145; 84484; 85025; 85027; 85378; 85610; 85730; 87040; 87077; 87186; 87426; 87635; 87804; 92610; 93005; 93306; 93356; 94640; 94664; 97039; C1894; C9803; G0378; J0360; J1644; J2250; J2270; J2543; J3010; J3370; J3475; J3480; J7120; 3370

== ENCOUNTER 2023-08-28 18:36 | Emergency (ER) | payer OTHER, MEDICARE ==
[~2023-08-28] VITALS: Ht 165.1 cm; Wt 65.3 kg
[~2023-08-28 18:36] MED LIST changes: -ACET-2079 PO; -ACET-2743 PO; -ASPI-1005 PO; -CARV12.511 PO; +CARV3.1262 PO; -CYCL10TA16 PO; -DONE5TAB5 PO; -FENO145T PO; +FINA-37 PO; -ISOS30TA92 PO; +LOSA-418 PO; -LOSA100T59 PO; +MIRA25TA PO; -NIFE-39 PO; -Nitroglycerin 0.4MG Sl Tab SL; +POTA-364 PO; -RANO500T2 PO; -SERT-439 PO; +SERT-440 PO
[2023-08-29 00:21] VITALS: BP 114/62; PULSE 74; RESP 16; O2SAT 98
== END 2023-08-29 00:30 | disposition home or self-care (01) ==
LOC: EDH 18:36
DX: T82.514A Breakdown (mechanical) of infusion catheter, initial encounter (principal); I10 Essential (primary) hypertension; E11.9 Type 2 diabetes mellitus without complications; E78.00 Pure hypercholesterolemia, unspecified; Z90.89 Acquired absence of other organs

== ENCOUNTER 2023-08-29 08:59 | Emergency (ER) | payer OTHER, MEDICARE ==
[~2023-08-29] VITALS: Ht 160 cm; Wt 56.7 kg
[2023-08-29 10:31] VITALS: BP 141/87; PULSE 84; RESP 16; O2SAT 98
[2023-08-29] MEDS ORDERED: LIDOCAINE HCL 1% 20 ML VIAL ONE (13:06)
== END 2023-08-29 14:09 | disposition home or self-care (01) ==
LOC: EDH 08:59
DX: T82.524A Displacement of infusion catheter, initial encounter (principal); I10 Essential (primary) hypertension; E78.00 Pure hypercholesterolemia, unspecified; E11.9 Type 2 diabetes mellitus without complications; Z90.89 Acquired absence of other organs

== ENCOUNTER → 2024-01-26 | Outpatient (CLI) | payer OTHER, MEDICARE ==
[~2024-01-26] MED LIST changes: +CARV-158 PO; -CARV3.1262 PO; -POTA-364 PO; +POTA-79 PO
[2024-01-26] MEDS: REGADENOSON 0.4 MG/5 ML PF SYG IVP ONE (11:55)
== END | disposition home or self-care (01) ==
LOC: SHCH 07:59
PROVIDERS: ATTEND Internal Medicine Cardiovascular Disease
DX: I48.91 Unspecified atrial fibrillation (principal); I25.10 Atherosclerotic heart disease of native coronary artery without angina pectoris; F41.9 Anxiety disorder, unspecified; I51.7 Cardiomegaly
CPT/HCPCS: 78452; 96374; 93017; J2785; A9500 ×2

== ENCOUNTER 2024-04-10 15:45 | Inpatient (IN) | payer OTHER, MEDICARE ==
[~2024-04-10] VITALS: Ht 167.6 cm; Wt 61.4 kg
[~2024-04-10 15:45] MED LIST changes: -CARV-158 PO; +CARV3.1262 PO; +POTA-364 PO; -POTA-79 PO
[2024-04-10 16:11] LABS: HEMATOCRIT 36.8 % (42-54); MEAN CORPUSCULAR HEMOGLOBIN 31.7 pg (27.0-33.0); MEAN CORPUSCULAR HGB CONC 32.9 g/dL (32.0-36.0); MEAN CORPUSCULAR VOLUME 96.3 fL (79-99); RED BLOOD CELL COUNT(AUTO) 3.82 MIL/uL (4.50-6.20); RED CELL DISTRIBUTION WIDTH 13.3 % (11.0-15.5); WHITE BLOOD COUNT (AUTO) 15.9 K/uL (4.8-10.8)
[2024-04-10 16:18] LABS: INR 1.2 (0.85-1.15)
[2024-04-10 16:19] LABS: PARTIAL THROMBOPLASTIN TIME 25.1 SEC (26.3-35.5)
[2024-04-10 16:23] LABS: CREATININE 1.8 mg/dL (0.5-1.3)
[2024-04-10 16:29] LABS: ALBUMIN 3.7 g/dL (3.5-5.0); BILIRUBIN,TOTAL 0.5 mg/dL (0.2-1.0)
[2024-04-10] MEDS: TETANUS/DIPHTHERIA TOXOID [ADULT] 0.5 ML VIAL IM ONE (17:36)
[2024-04-10] MEDS ORDERED: MAGNESIUM 2GM PREMIX 50ML 50 ML IV PRN (18:30)
[2024-04-10] MEDS ORDERED: ACETAMINOPHEN 325 MG TAB PO PRN (18:30)
[2024-04-10] MEDS ORDERED: OXYCODONE/ACETAMIN 5/325MG TAB PO PRN (18:30)
[2024-04-10] MEDS ORDERED: DiphenhydrAMINE HCL 50 MG/ML VIAL IV PRN (18:30)
[2024-04-10] MEDS ORDERED: NITROGLYCERIN 0.4 MG SL TAB SL PRN (18:30)
[2024-04-10] MEDS ORDERED: ZOLPIDEM TARTRATE 5 MG TAB PO PRN (18:30)
[2024-04-10] MEDS ORDERED: MAG/ALUM/SIMETH 30 ML UDCUP PO PRN (18:30)
[2024-04-10] MEDS ORDERED: ONDANSETRON 4MG INJ IV PRN (18:30)
[2024-04-10] MEDS ORDERED: LACTULOSE 20 GM/30 ML UDCUP PO PRN (18:30)
[2024-04-10] MEDS ORDERED: FAMOTIDINE 20MG VIAL IV PRN (18:30)
[2024-04-10] MEDS ORDERED: GUAIFENESIN-DM 200/20 MG 10 ML PO PRN (18:30)
[2024-04-10] MEDS: LIDOCAINE 1%-EPI 1:100,000 20 ML VIAL IJ SCH (19:38)
[2024-04-10] MEDS: CEFTRIAXONE 1G VIAL IV SCH (19:38)
[2024-04-10] MEDS: 0.9%NACL 1000ML 1,000 ML IV SCH (19:38)
[2024-04-10 20:00] VITALS: BP 124/69; PULSE 79; RESP 19
[2024-04-10] MEDS: INSULIN HUMULIN R 100 UNIT/ML 3ML SQ SCH (21:00)
[2024-04-10] MEDS: CARVEDILOL 12.5 MG TABLET PO SCH (21:31)
[2024-04-10] MEDS: LOSARTAN 50 MG TABLET PO SCH (21:31)
[2024-04-10] MEDS: FAMOTIDINE 20MG VIAL IV SCH (21:31)
[2024-04-10] MEDS: LEVETIRACETAM 500 MG TABLET PO SCH (21:31)
[2024-04-10] MEDS: TAMSULOSIN HCL 0.4 MG CAP.ER.24H PO SCH (21:32)
[2024-04-10] MEDS: HEPARIN 5,000 UNIT VIAL SQ SCH (21:32)
[2024-04-10] MEDS: ATORVASTATIN 40 MG TABLET PO SCH (21:33)
[2024-04-10 22:15] VITALS: O2SAT 97
[2024-04-10 23:00] VITALS: BP 154/86; PULSE 91; RESP 19
[2024-04-11] VITALS (8 sets, daily range): BP systolic 133–172; BP diastolic 79–91; PULSE 67–80; RESP 17–20; O2SAT 98
[2024-04-11 02:30] LABS: BACTERIA,URINE RARE /HPF (None Seen); MUCUS,URINE RARE LPF (None Seen); RBC,URINE 0-1 /HPF (0-1)
[2024-04-11 02:34] LABS: APPEARANCE,URINE CLOUDY (CLEAR); BILIRUBIN,URINE NEGATIVE (NEGATIVE); COLOR,URINE YELLOW (YELLOW); GLUCOSE, URINE (UA) 50 mg/dL (NEGATIVE); KETONES,URINE NEGATIVE (NEGATIVE); LEUKOCYTE ESTERASE ,URINE NEGATIVE Leu/uL (NEGATIVE); NITRATE,URINE NEGATIVE (NEGATIVE); OCCULT BLOOD,URINE NEGATIVE (NEGATIVE); PH,URINE 5.5 (5.0-8.0); PROTEIN,URINE 20 mg/dL (NEGATIVE)
[2024-04-11 05:02] LABS: BASOPHILS # (AUTO) 0.03 K/uL (0.00-0.20); BASOPHILS % (AUTO) 0.2 % (0.0-5.0); HEMATOCRIT 34.1 % (42-54); IMMATURE GRANULOCYTE ABSOLUTE 0.07 K/uL (0-1); LYMPHOCYTES # (AUTO) 1.7 K/uL (1.0-4.8); LYMPHOCYTES % (AUTO) 10.6 % (21.0-51.0); MEAN CORPUSCULAR HEMOGLOBIN 31.5 pg (27.0-33.0); MEAN CORPUSCULAR HGB CONC 33.1 g/dL (32.0-36.0); MONOCYTES % (AUTO) 6.4 % (3.0-13.0); NEUTROPHILS # (AUTO) 13.1 K/uL (1.8-7.7); NEUTROPHILS % (AUTO) 82.4 % (40.0-77.0); PLATELET COUNT (AUTO) 188 K/uL (130-400); RED BLOOD CELL COUNT(AUTO) 3.59 MIL/uL (4.50-6.20); RED CELL DISTRIBUTION WIDTH 13.4 % (11.0-15.5); WHITE BLOOD COUNT (AUTO) 15.9 K/uL (4.8-10.8)
[2024-04-11 05:15] LABS: INR 0.97 (0.85-1.15); PROTHROMBIN TIME 11.5 SEC (9.6-11.6)
[2024-04-11 05:16] LABS: PARTIAL THROMBOPLASTIN TIME 26.6 SEC (26.3-35.5)
[2024-04-11 05:43] LABS: ALBUMIN 3.3 g/dL (3.5-5.0); BILIRUBIN,DIRECT 0.1 mg/dL (0.0-0.3); BILIRUBIN,TOTAL 0.4 mg/dL (0.2-1.0); CREATININE 1.2 mg/dL (0.5-1.3); MAGNESIUM 2.3 mg/dL (1.80-2.40); POTASSIUM 3.9 mmol/L (3.5-5.1); THYROID STIMULATING HORMONE 1.62 uIU/mL (0.36-3.74); TOTAL PROTEIN, SERUM 6.6 g/dL (6.0-8.3)
[2024-04-11] MEDS: MIRABEGRON 25 MG PO SCH (09:00)
[2024-04-11] MEDS: KCL 20 MEQ ERTAB PO SCH (09:53)
[2024-04-11] MEDS: FINASTERIDE 5 MG TABLET PO SCH (09:53)
[2024-04-11] MEDS: SERTRALINE HCL 50 MG TABLET PO SCH (09:53)
[2024-04-12] VITALS (9 sets, daily range): BP systolic 118–173; BP diastolic 68–96; PULSE 65–90; RESP 16–20; O2SAT 98–99
[2024-04-12] MEDS: PANTOPRAZOLE 40 MG/VIAL IVP ONE (04:29)
[2024-04-12 05:23] LABS: BASOPHILS # (AUTO) 0.04 K/uL (0.00-0.20); BASOPHILS % (AUTO) 0.3 % (0.0-5.0); HEMATOCRIT 32.9 % (42-54); IMMATURE GRANULOCYTE ABSOLUTE 0.04 K/uL (0-1); LYMPHOCYTES # (AUTO) 1.7 K/uL (1.0-4.8); LYMPHOCYTES % (AUTO) 14.4 % (21.0-51.0); MEAN CORPUSCULAR HEMOGLOBIN 31.3 pg (27.0-33.0); MEAN CORPUSCULAR HGB CONC 32.2 g/dL (32.0-36.0); MEAN CORPUSCULAR VOLUME 97.1 fL (79-99); MONOCYTES % (AUTO) 8.2 % (3.0-13.0); NEUTROPHILS % (AUTO) 76.8 % (40.0-77.0); PLATELET COUNT (AUTO) 177 K/uL (130-400); RED BLOOD CELL COUNT(AUTO) 3.39 MIL/uL (4.50-6.20); RED CELL DISTRIBUTION WIDTH 13.2 % (11.0-15.5); WHITE BLOOD COUNT (AUTO) 11.7 K/uL (4.8-10.8)
[2024-04-12 05:28] LABS: CREATININE 0.8 mg/dL (0.5-1.3); POTASSIUM 3.2 mmol/L (3.5-5.1)
[2024-04-13] VITALS (8 sets, daily range): BP systolic 109–173; BP diastolic 65–93; PULSE 64–88; RESP 16–20; O2SAT 96–97
[2024-04-13] MEDS: HYDRALAZINE 20MG/ML VIAL IV PRN (04:44)
[2024-04-13 05:53] LABS: BASOPHILS # (AUTO) 0.03 K/uL (0.00-0.20); BASOPHILS % (AUTO) 0.3 % (0.0-5.0); EOSINOPHILS # (AUTO) 0.04 K/uL (0.00-0.70); EOSINOPHILS % (AUTO) 0.4 % (0.0-8.0); HEMATOCRIT 35.6 % (42-54); IMMATURE GRANULOCYTE ABSOLUTE 0.03 K/uL (0-1); LYMPHOCYTES # (AUTO) 1.7 K/uL (1.0-4.8); LYMPHOCYTES % (AUTO) 18.1 % (21.0-51.0); MEAN CORPUSCULAR HEMOGLOBIN 31.1 pg (27.0-33.0); MEAN CORPUSCULAR HGB CONC 33.1 g/dL (32.0-36.0); MEAN CORPUSCULAR VOLUME 93.7 fL (79-99); MONOCYTES # (AUTO) 0.8 K/uL (0.1-1.0); MONOCYTES % (AUTO) 8.5 % (3.0-13.0); NEUTROPHILS # (AUTO) 6.8 K/uL (1.8-7.7); NEUTROPHILS % (AUTO) 72.4 % (40.0-77.0); PLATELET COUNT (AUTO) 191 K/uL (130-400); RED CELL DISTRIBUTION WIDTH 13.1 % (11.0-15.5); WHITE BLOOD COUNT (AUTO) 9.4 K/uL (4.8-10.8)
[2024-04-13 06:08] LABS: CREATININE 0.8 mg/dL (0.5-1.3); POTASSIUM 3.1 mmol/L (3.5-5.1)
[2024-04-13] MEDS ORDERED: POTASSIUM CHLORIDE 20MEQ/100ML 100 ML IV PRN (09:30)
[2024-04-13] MEDS ORDERED: POTASSIUM CHLORIDE 10% ELIXIR 20 MEQ/15 ML UDCUP PO PRN (09:30)
[2024-04-13] MEDS ORDERED: KCL 20 MEQ ERTAB PO PRN (09:30)
[2024-04-13] MEDS: CARVEDILOL 25 MG TABLET PO SCH (10:22)
[2024-04-13] MEDS ORDERED: ISOS30TA92 PO (12:57)
[2024-04-13] MEDS ORDERED: OXYB-66 PO (12:57)
[2024-04-13] MEDS ORDERED: DONE5TAB33 PO (12:57)
[2024-04-13] MEDS: OXYBUTYNIN 5 MG TAB.SR.24H PO SCH (21:19)
[2024-04-14] VITALS (7 sets, daily range): BP systolic 118–147; BP diastolic 68–88; PULSE 78–94; RESP 14–20; O2SAT 94
[2024-04-14 04:25] LABS: BASOPHILS # (AUTO) 0.04 K/uL (0.00-0.20); BASOPHILS % (AUTO) 0.5 % (0.0-5.0); EOSINOPHILS # (AUTO) 0.01 K/uL (0.00-0.70); EOSINOPHILS % (AUTO) 0.1 % (0.0-8.0); HEMATOCRIT 32.4 % (42-54); IMMATURE GRANULOCYTE ABSOLUTE 0.03 K/uL (0-1); LYMPHOCYTES # (AUTO) 1.8 K/uL (1.0-4.8); LYMPHOCYTES % (AUTO) 22.7 % (21.0-51.0); MEAN CORPUSCULAR HEMOGLOBIN 31.9 pg (27.0-33.0); MEAN CORPUSCULAR HGB CONC 33.3 g/dL (32.0-36.0); MEAN CORPUSCULAR VOLUME 95.6 fL (79-99); MONOCYTES # (AUTO) 0.9 K/uL (0.1-1.0); MONOCYTES % (AUTO) 10.8 % (3.0-13.0); NEUTROPHILS # (AUTO) 5.3 K/uL (1.8-7.7); NEUTROPHILS % (AUTO) 65.5 % (40.0-77.0); PLATELET COUNT (AUTO) 184 K/uL (130-400); RED BLOOD CELL COUNT(AUTO) 3.39 MIL/uL (4.50-6.20); RED CELL DISTRIBUTION WIDTH 13.1 % (11.0-15.5)
[2024-04-14 04:41] LABS: CREATININE 1.1 mg/dL (0.5-1.3)
[2024-04-14 04:45] LABS: POTASSIUM 2.8 mmol/L (3.5-5.1)
[2024-04-14] MEDS: KCL 20 MEQ ERTAB PO PRN (05:30)
[2024-04-14] MEDS: POTASSIUM CHLORIDE 20MEQ/100ML 100 ML IV PRN (05:31)
[2024-04-14] MEDS: TRAMADOL HCL 50 MG TABLET PO PRN (06:38)
[2024-04-14] MEDS: SERTRALINE HCL 50 MG TABLET PO SCH (09:04)
[2024-04-14] MEDS: DONEPEZIL HCL 5 MG TAB PO SCH (09:04)
[2024-04-14] MEDS: ISOSORBIDE MONO 30MG SR TAB PO SCH (09:05)
[2024-04-14] MEDS: CLOPIDOGREL 75MG TAB PO SCH (09:06)
[2024-04-14] MEDS: REGADENOSON 0.4 MG/5 ML PF SYG IVP ONE (12:39)
[2024-04-14] MEDS: POTASSIUM CHLORIDE 10% ELIXIR 20 MEQ/15 ML UDCUP PO PRN (22:17)
[2024-04-15 04:00] VITALS: BP 93/53; PULSE 94; RESP 20
[2024-04-15 05:22] LABS: CREATININE 0.9 mg/dL (0.5-1.3); POTASSIUM 3.6 mmol/L (3.5-5.1)
[2024-04-15 07:23] VITALS: BP 153/84; PULSE 81; RESP 18
[2024-04-15 08:00] VITALS: O2SAT 94
[2024-04-15 11:39] VITALS: BP 122/70; PULSE 87; RESP 19
== END 2024-04-15 17:51 | DRG 605 ==
LOC: EDH 15:45 → EDHIP 18:19 → 3DH 20:54
PROVIDERS: ADMIT Hospitalist; ATTEND Hospitalist
PROC: 0HQ0XZZ Repair Scalp Skin, External Approach (ICD-10-PCS; principal; 2024-04-10)
PROC: 4A02XM4 Measurement of Cardiac Total Activity, External Approach (ICD-10-PCS; 2024-04-10)
PROC: 3E033HZ Introduction of Radioactive Substance into Peripheral Vein, Percutaneous Approach (ICD-10-PCS; 2024-04-10)
DX: S01.01XA Laceration without foreign body of scalp, initial encounter (principal); N17.9 Acute kidney failure, unspecified; I48.20 Chronic atrial fibrillation, unspecified; I50.32 Chronic diastolic (congestive) heart failure; I69.354 Hemiplegia and hemiparesis following cerebral infarction affecting left non-dominant side; F03.90 Unspecified dementia, unspecified severity, without behavioral disturbance, psychotic disturbance, mood disturbance, and anxiety; I11.0 Hypertensive heart disease with heart failure; E11.9 Type 2 diabetes mellitus without complications; E78.00 Pure hypercholesterolemia, unspecified; E87.6 Hypokalemia; G40.909 Epilepsy, unspecified, not intractable, without status epilepticus; I25.10 Atherosclerotic heart disease of native coronary artery without angina pectoris; I25.2 Old myocardial infarction; I34.0 Nonrheumatic mitral (valve) insufficiency; I45.9 Conduction disorder, unspecified; I48.0 Paroxysmal atrial fibrillation; N40.0 Benign prostatic hyperplasia without lower urinary tract symptoms; Z79.01 Long term (current) use of anticoagulants; W01.0XXA Fall on same level from slipping, tripping and stumbling without subsequent striking against object, initial encounter; Y93.89 Activity, other specified; Y92.89 Other specified places as the place of occurrence of the external cause; Y99.8 Other external cause status; Z79.899 Other long term (current) drug therapy; Z86.16 Personal history of COVID-19; Z90.49 Acquired absence of other specified parts of digestive tract; Z95.0 Presence of cardiac pacemaker; Z95.5 Presence of coronary angioplasty implant and graft
CPT/HCPCS: 36415; 70450; 71045; 72125; 76376; 78452; 78582; 80048; 80053; 80076; 80177; 81001; 82140; 82550; 82948; 83036; 83605; 83735; 83880; 84132; 84145; 84443; 84484; 85025; 85027; 85378; 85610; 85730; 87088; 90714; 93005; 93017; 93306; 93970; 96365; 96372; 96374; 99291; A9500; A9540; A9558; C9113; G0378; J0360; J0696; J1644; J1815; J2785; J3480; J3490; J7030

== ENCOUNTER → 2025-07-14 | Outpatient (CLI) | payer OTHER, MEDICAID ==
[~2025-07-14] MED LIST changes: +DONE5TAB33 PO; +ISOS30TA92 PO; -MIRA25TA PO; +OXYB-66 PO; -RIVA20TA PO; -TAMS-1 PO; +TAMS-55 PO
--- NOTE | 2025-07-14 21:00 | NUR ---
POTASSIUM ,DONEPEZIL HCL 5 MG,LEVETIRACETAM 500MG,FINASTERIDE 5MG,LOSARTAN POTASSIUM 50MG, CLOPIDOGREL 75 MG,ISOSORBIDE MONONIT ER 30MG Addendum: 07/14/25 at 2108 by MARGUERITE SCHUSTER Amended: Links added.
[2025-07-14 22:04] VITALS: PULSE 86; RESP 24
[2025-07-14 22:30] VITALS: PULSE 80; RESP 20
[2025-07-14 23:00] VITALS: PULSE 80; RESP 22
[2025-07-14 23:30] VITALS: PULSE 78; RESP 4
[2025-07-15] VITALS (10 sets, daily range): PULSE 78–82; RESP 2–24
== END | disposition home or self-care (01) ==
LOC: SLP 20:12
PROVIDERS: ATTEND Internal Medicine Cardiovascular Disease
DX: G47.33 Obstructive sleep apnea (adult) (pediatric) (principal)
CPT/HCPCS: 95810

== ENCOUNTER → 2025-07-23 | Outpatient (CLI) | payer OTHER, MEDICAID ==
[2025-07-23 21:23] VITALS: PULSE 82; RESP 18
[2025-07-23 22:00] VITALS: PULSE 82; RESP 16
[2025-07-23 22:30] VITALS: PULSE 72; RESP 14
[2025-07-23 23:00] VITALS: PULSE 80; RESP 14
[2025-07-23 23:30] VITALS: PULSE 74; RESP 14
[2025-07-24] VITALS (11 sets, daily range): PULSE 64–80; RESP 6–18
== END | disposition home or self-care (01) ==
LOC: SLP 20:23
PROVIDERS: ATTEND Internal Medicine Cardiovascular Disease
DX: G47.33 Obstructive sleep apnea (adult) (pediatric) (principal)
CPT/HCPCS: 95811